=== PATIENT | female | born 1965 | race Caucasian/White ===

== ENCOUNTER 2016-05-15 11:07 | Emergency (ER) | payer OTHER ==
[~2016-05-15] VITALS: Ht 165.1 cm; Wt 68.0 kg
[~2016-05-15 11:07] MED LIST: IBUP800T23 PO; NEXI20CA PO; TRAM50 PO
[2016-05-15 11:11] VITALS: BP 106/74; PULSE 84; RESP 16; TEMP 98.3; O2SAT 98
[2016-05-15] MEDS ORDERED: NEXI40CA PO (11:18)
[2016-05-15] MEDS ORDERED: RESP: ALBUTEROL 2.5 MG/IPRATROPIUM 0.5 MG NEB (SCH) NEB ONE (11:45)
--- NOTE | 2016-05-15 11:50 | PD ---
HPI Chief Complaint: Cold / Flu Symptoms Time Seen by Provider: 11:43 Travel History International Travel<30 days: No Contact w/Intl Traveler<30days: No Traveled to known affect area: No History of Present Illness HPI 50-year-old female presents to the emergency room for evaluation of nonproductive cough, sore throat, and congestion for the past 2 days. Reports history of similar episode one month ago that went away on its own. She has been taking Mucinex without relief in symptoms. Cough is worse at night. Patient denies shortness of breath, chest pain, fever, chills, nausea, vomiting. Denies smoking. PFSH Past Medical History Hx Anticoagulant Therapy: No Arthritis: Yes Asthma: No Autoimmune Disease: No Heart Rhythm Problems: No Cardiac Catheterization: No Cardiovascular Problems: Yes High Cholesterol: No Chemotherapy: No Chest Pain: Yes Congestive Heart Failure: No COPD: No Cerebrovascular Accident: No Diabetes: No Diminished Hearing: No Endocrine: No Genitourinary: No Headaches: Yes Hypertension: No Immune Disorder: No Kidney Stones: No Musculoskeletal: No Neurologic: No Reproductive: No Respiratory: Yes (PLEURISY) Immunizations Current: Yes Migraines: Yes Renal Failure: No Seizures: No Sleep Apnea: Yes Tetanus Vaccination: < 5 Years Influenza Vaccination: No ?: Not Menopausal: Yes Dilation and Curettage (D&C): Yes (Multiple) Past Surgical History Abdominal Surgery: No Cardiac Surgery: No Section: Yes Coronary Artery Bypass Graft: No Ear Surgery: Yes Endocrine Surgery: No Eye Surgery: Yes Genitourinary Surgery: No Gynecologic Surgery: Yes Hysterectomy: Yes Neurologic Surgery: No Oral Surgery: No Thoracic Surgery: No Tonsillectomy: Yes Other Surgery: Yes (bunions and hammer toe bilat feet, nose surgery, four fatty tumors removed) Family History Family Myocardial Infarction: Yes Social History Alcohol Use: Yes (RARE) Tobacco Use: No Substance Use: No Allergies-Medications (Allergen,Severity, Reaction): Coded Allergies: Erythromycin (Verified Allergy, Severe, Anaphylaxis, 05/15/16) Acetaminophen (Verified Allergy, Intermediate, Nausea/Vomiting, 05/15/16) Iodine (Verified Allergy, Intermediate, Hives, 05/15/16) Morphine (Verified Allergy, Intermediate, Hives, 05/15/16) Contrast Media (Verified Allergy, Mild, Hives, 05/15/16) Nonsteroidal Anti-Inflammatory Agts (Verified Allergy, Mild, Nausea/ Vomiting, 05/15/16) Reglan (Verified Allergy, Mild, Rash, 05/15/16) Reported Meds & Prescriptions Reported Meds & Active Scripts Active Reported Nexium (Esomeprazole DR) 40 Mg Capdr 40 Mg PO DAILY Review of Systems Except as stated in HPI: all other systems reviewed are Neg Physical Exam Narrative GENERAL: Well-nourished, well-developed female in no acute distress. Afebrile. Ambulatory. SKIN: Warm and dry. HEAD: Normocephalic. EYES: No scleral icterus. No injection or drainage. ENT: Mucosa pink and moist. No erythema or exudates. No uvular edema. No uvular , palatal, or tonsillar deviation. Airway patent. Nasal turbinates appear normal without nasal blood, purulent drainage or septal hematoma. EARS: Bilateral pinnae and external canals appear within normal limits. Bilateral tympanic membranes without erythema, dullness or perforation. NECK: Supple, trachea midline. No JVD or lymphadenopathy. CARDIOVASCULAR: Regular rate and rhythm without murmurs, gallops, or rubs. RESPIRATORY: Breath sounds equal bilaterally. No accessory muscle use. Mild to moderate wheezing in the left lung field. Data Data Last Documented VS Vital Signs Date Time Temp Pulse Resp B/P Pulse Ox O2 Delivery O2 Flow Rate FiO2 05/15/16 11:19 98 Room Air 05/15/16 11:11 98.3 84 16 106/74 Orders Chest, Pa & Lat (05/15/16 ) Albuterol-Ipratropium Neb (Duoneb Neb) (05/15/16 11:45) MDM Medical Decision Making Medical Screen Exam Complete: Yes Emergency Medical Condition: Yes Medical Record Reviewed: Yes Differential Diagnosis Bronchitis versus upper respiratory infection versus common cold versus pneumonia unlikely Narrative Course 50-year-old female presents to the emergency room for evaluation of nonproductive cough, sore throat, and congestion for the past 2 days. Denies systemic signs of infection. Vital signs stable. Patient coughing frequently in the emergency room. Lung sounds reveal left-sided wheezes. She was given 1 DuoNeb. Chest x-ray is negative. This is acute viral bronchitis. Patient discharged Tessalon Perles and an inhaler and told to follow up with primary care physician or return for worsening symptoms. She understands and agrees to plan. Diagnosis Primary Impression: Acute bronchitis Qualified Code: J20.9 - Acute bronchitis, unspecified organism Referrals: Primary Care Physician Patient Instructions: Acute Bronchitis (ED), General Instructions Additional Instructions: Rest and drink plenty of fluids. [id number] Robitussin for cough. Use inhaler as directed, as needed for shortness of breath and cough. Take Tessalon Perles as directed, as needed for cough. Follow-up with a primary care physician. Return to the emergency room for worsening symptoms. Med/Other Pt SpecificInfo: Prescription(s) given Scripts Albuterol 18 GM Inh (Ventolin Hfa 18 GM Inh)90 Mcg/Act Aer2 Puff INH Q6H PRN ( SHORTNESS OF BREATH) #1 INHALER Ref 0 Prov:Kristyn Orourke MD 05/15/16 Benzonatate (Tessalon Perles)100 Mg [id number] Mg PO TID PRN (COUGH) #21 CAP Ref 0 Prov:Kristyn Orourke MD 05/15/16 Disposition: 01 DISCHARGE HOME Condition: Stable Sujata Tenorio May 15, 2016 11:49
--- NOTE | 2016-05-15 12:35 | RADHPO ---
EXAM DATE/TIME: 05/15/2016 12:14 [facility] COMPARISON: CHEST SINGLE AP, June 08, 2015, 19:04. INDICATIONS : Cough MEDICAL HISTORY : None. SURGICAL HISTORY : None. ENCOUNTER: Initial ACUITY: 2 days PAIN SCORE: 7/10 LOCATION: Bilateral chest FINDINGS: PA and lateral views of the chest demonstrate the lungs to be symmetrically aerated without evidence of mass, infiltrate or effusion. The cardiomediastinal contours are unremarkable. Osseous structure s are intact. CONCLUSION: Normal examination. Mckayla Cano MD on May 15, 2016 at 12:32 Board Certified Radiologist. This report was verified electronically.
[2016-05-15] MEDS ORDERED: VENTAER INH (12:39)
[2016-05-15] MEDS ORDERED: BENZ100 PO (12:39)
[2016-05-15 12:45] VITALS: BP 112/63
== END 2016-05-15 12:47 | disposition home or self-care (01) ==
LOC: PHEFT 11:07
DX: J20.9 Acute bronchitis, unspecified (principal)
CPT/HCPCS: 71020; 94664; 99283

== ENCOUNTER 2016-07-09 17:09 | Emergency (ER) | payer OTHER ==
[~2016-07-09] VITALS: Ht 165.1 cm; Wt 70.0 kg
[~2016-07-09 17:09] MED LIST changes: +BENZ100 PO; -IBUP800T23 PO; -NEXI20CA PO; +NEXI40CA PO; -TRAM50 PO; +VENTAER INH
[2016-07-09 17:12] VITALS: BP 128/82; PULSE 76; RESP 12; TEMP 98; O2SAT 100
--- NOTE | 2016-07-09 18:02 | PD ---
HPI Chief Complaint: Abdominal Pain Time Seen by Provider: 17:58 Travel History International Travel<30 days: No Contact w/Intl Traveler<30days: No Traveled to known affect area: No History of Present Illness HPI Patient is a 51-year-old female presenting to emergency department for evaluation of left lower quadrant abdominal pain. Patient states it started approximately 7:30 this morning. She states she also feels nauseated and has been having urinary frequency. She states the abdominal pain increases when she urinates. She also reports lower back pain. Patient states the pain is a 10 out of 10 and describes as aching and throbbing. PFSH Past Medical History Hx Anticoagulant Therapy: No Arthritis: Yes Asthma: No Autoimmune Disease: No Heart Rhythm Problems: No Cardiac Catheterization: No Cardiovascular Problems: Yes High Cholesterol: No Chemotherapy: No Chest Pain: Yes Congestive Heart Failure: No COPD: No Cerebrovascular Accident: No Diabetes: No Diminished Hearing: No Endocrine: No Genitourinary: No Headaches: Yes Hypertension: No Immune Disorder: No Kidney Stones: No Musculoskeletal: No Neurologic: No Reproductive: No Respiratory: Yes (PLEURISY) Immunizations Current: Yes Migraines: Yes Renal Failure: No Seizures: No Sleep Apnea: Yes Menopausal: Yes Dilation and Curettage (D&C): Yes (Multiple) Past Surgical History Abdominal Surgery: No Cardiac Surgery: No Section: Yes Coronary Artery Bypass Graft: No Ear Surgery: Yes Endocrine Surgery: No Eye Surgery: Yes Genitourinary Surgery: No Gynecologic Surgery: Yes Hysterectomy: Yes Neurologic Surgery: No Oral Surgery: No Thoracic Surgery: No Tonsillectomy: Yes Other Surgery: Yes (bunions and hammer toe bilat feet, nose surgery, four fatty tumors removed) Social History Alcohol Use: Yes (RARE) Tobacco Use: No Substance Use: No Allergies-Medications (Allergen,Severity, Reaction): Coded Allergies: Erythromycin (Verified Allergy, Severe, Anaphylaxis, 07/09/16) Acetaminophen (Verified Allergy, Intermediate, Nausea/Vomiting, 07/09/16) Iodine (Verified Allergy, Intermediate, Hives, 07/09/16) Morphine (Verified Allergy, Intermediate, Hives, 07/09/16) Contrast Media (Verified Allergy, Mild, Hives, 07/09/16) Nonsteroidal Anti-Inflammatory Agts (Verified Allergy, Mild, Nausea/ Vomiting, 07/09/16) Reglan (Verified Allergy, Mild, Rash, 07/09/16) Reported Meds & Prescriptions Reported Meds & Active Scripts Active Tramadol (Tramadol HCl) 50 Mg Tab 50 Mg PO Q6H PRN Reported Nexium (Esomeprazole DR) 40 Mg Capdr 40 Mg PO DAILY Review of Systems Except as stated in HPI: all other systems reviewed are Neg General / Constitutional: No: Fever, Chills HENT: No: Headaches Cardiovascular: No: Chest Pain or Discomfort Respiratory: No: Shortness of Breath Gastrointestinal: Positive: Nausea, Abdominal Pain Genitourinary: Positive: Frequency, Flank Pain Musculoskeletal: Positive: Pain (back pain) Physical Exam Narrative GENERAL: Well-developed, well-nourished, alert female. Appears uncomfortable, in no acute distress. SKIN: Warm and dry. HEAD: Atraumatic. Normocephalic. EYES: Pupils equal and round. No scleral icterus. No injection or drainage. ENT: No nasal bleeding or discharge. Mucous membranes pink and moist. NECK: Trachea midline. No JVD. CARDIOVASCULAR: Regular rate and rhythm. No murmur appreciated. RESPIRATORY: No accessory muscle use. Clear to auscultation. Breath sounds equal bilaterally. GASTROINTESTINAL: Abdomen soft, moderately tender to palpation in left lower quadrant positive guarding, no rebound, nondistended. Hepatic and splenic margins not palpable. Positive bowel sounds. MUSCULOSKELETAL: No obvious deformities. No clubbing. No cyanosis. No edema. Positive CVAT bilaterally NEUROLOGICAL: Awake and alert. No obvious cranial nerve deficits. Motor grossly within normal limits. Normal speech. PSYCHIATRIC: Appropriate mood and affect; insight and judgment normal. Data Data Last Documented VS Vital Signs Date Time Temp Pulse Resp B/P Pulse Ox O2 Delivery O2 Flow Rate FiO2 07/09/16 17:12 98.0 76 12 128/82 100 Orders Urinalysis - C+S If Indicated (07/09/16 17:40) Complete Blood Count With Diff (07/09/16 17:48) Comprehensive Metabolic Panel (07/09/16 17:48) Ct Abd/Pel W/O Iv Contrast (07/09/16 ) Ed Urine Pregnancytest Poc (07/09/16 17:54) Ondansetron Inj (Zofran Inj) (07/09/16 18:30) Urine Culture (07/09/16 18:10) Promethazine Inj (Phenergan Inj) (07/09/16 19:15) Ciprofloxacin (Cipro) (07/09/16 19:15) Metronidazole (Flagyl) (07/09/16 19:15) Labs Laboratory Tests Test 07/09/16 18:10 White Blood Count 5.7 TH/MM3 Red Blood Count 4.22 MIL/MM3 Hemoglobin 13.6 GM/DL Hematocrit 40.0 % Mean Corpuscular Volume 94.7 FL Mean Corpuscular Hemoglobin 32.2 PG Mean Corpuscular Hemoglobin 34.0 % Concent Red Cell Distribution Width 13.0 % Platelet Count 234 TH/MM3 Mean Platelet Volume 8.5 FL Neutrophils (%) (Auto) 68.9 % Lymphocytes (%) (Auto) 19.1 % Monocytes (%) (Auto) 8.2 % Eosinophils (%) (Auto) 3.2 % Basophils (%) (Auto) 0.6 % Neutrophils # (Auto) 3.9 TH/MM3 Lymphocytes # (Auto) 1.1 TH/MM3 Monocytes # (Auto) 0.5 TH/MM3 Eosinophils # (Auto) 0.2 TH/MM3 Basophils # (Auto) 0.0 TH/MM3 CBC Comment DIFF FINAL Differential Comment Urine Color LIGHT-YELLOW Urine Turbidity HAZY Urine pH 5.5 Urine Specific [place] 1.012 Urine Protein NEG mg/dL Urine Glucose (UA) NEG mg/dL Urine Ketones NEG mg/dL Urine Occult Blood NEG Urine Nitrite NEG Urine Bilirubin NEG Urine Urobilinogen LESS THAN 2.0 MG/DL Urine Leukocyte Esterase LARGE Urine RBC 1 /hpf Urine WBC 17 /hpf Urine Squamous Epithelial 6 /hpf Cells Urine Bacteria RARE /hpf Urine Mucus FEW /lpf Microscopic Urinalysis Comment CULTURE INDICATED Sodium Level 141 MEQ/L Potassium Level 3.7 MEQ/L Chloride Level 104 MEQ/L Carbon Dioxide Level 29.1 MEQ/L Anion Gap 8 MEQ/L Blood Urea Nitrogen 15 MG/DL Creatinine 0.88 MG/DL Estimat Glomerular Filtration 67 ML/MIN Rate Random Glucose 95 MG/DL Calcium Level 9.1 MG/DL Total Bilirubin 0.2 MG/DL Aspartate Amino Transf 17 U/L (AST/SGOT) Alanine Aminotransferase 20 U/L (ALT/SGPT) Alkaline Phosphatase 93 U/L Total Protein 7.7 GM/DL Albumin 4.0 GM/DL [facility] Medical Decision Making Medical Screen Exam Complete: Yes Emergency Medical Condition: Yes Interpretation(s) Laboratory Tests Test 07/09/16 18:10 White Blood Count 5.7 TH/MM3 Red Blood Count 4.22 MIL/MM3 Hemoglobin 13.6 GM/DL Hematocrit 40.0 % Mean Corpuscular Volume 94.7 FL Mean Corpuscular Hemoglobin 32.2 PG Mean Corpuscular Hemoglobin 34.0 % Concent Red Cell Distribution Width 13.0 % Platelet Count 234 TH/MM3 Mean Platelet Volume 8.5 FL Neutrophils (%) (Auto) 68.9 % Lymphocytes (%) (Auto) 19.1 % Monocytes (%) (Auto) 8.2 % Eosinophils (%) (Auto) 3.2 % Basophils (%) (Auto) 0.6 % Neutrophils # (Auto) 3.9 TH/MM3 Lymphocytes # (Auto) 1.1 TH/MM3 Monocytes # (Auto) 0.5 TH/MM3 Eosinophils # (Auto) 0.2 TH/MM3 Basophils # (Auto) 0.0 TH/MM3 CBC Comment DIFF FINAL Differential Comment Urine Color LIGHT-YELLOW Urine Turbidity HAZY Urine pH 5.5 Urine Specific [place] 1.012 Urine Protein NEG mg/dL Urine Glucose (UA) NEG mg/dL Urine Ketones NEG mg/dL Urine Occult Blood NEG Urine Nitrite NEG Urine Bilirubin NEG Urine Urobilinogen LESS THAN 2.0 MG/DL Urine Leukocyte Esterase LARGE Urine RBC 1 /hpf Urine WBC 17 /hpf Urine Squamous Epithelial 6 /hpf Cells Urine Bacteria RARE /hpf Urine Mucus FEW /lpf Microscopic Urinalysis Comment CULTURE INDICATED Sodium Level 141 MEQ/L Potassium Level 3.7 MEQ/L Chloride Level 104 MEQ/L Carbon Dioxide Level 29.1 MEQ/L Anion Gap 8 MEQ/L Blood Urea Nitrogen 15 MG/DL Creatinine 0.88 MG/DL Estimat Glomerular Filtration 67 ML/MIN Rate Random Glucose 95 MG/DL Calcium Level 9.1 MG/DL Total Bilirubin 0.2 MG/DL Aspartate Amino Transf 17 U/L (AST/SGOT) Alanine Aminotransferase 20 U/L (ALT/SGPT) Alkaline Phosphatase 93 U/L Total Protein 7.7 GM/DL Albumin 4.0 GM/DL Last Impressions Abdomen/Pelvis CT 07/09/16 0000 Signed Impressions: Service Date/Time: Saturday, July 09, 2016 18:26 - CONCLUSION: Mild uncomplicated diverticulitis of the sigmoid colon. Jhonny López MD Vital Signs Date Time Temp Pulse Resp B/P Pulse Ox O2 Delivery O2 Flow Rate FiO2 07/09/16 17:12 98.0 76 12 128/82 100 Differential Diagnosis Diverticulitis versus obstruction versus urinary tract infection versus pyelonephritis versus gastroenteritis versus other Narrative Course Patient is a 51-year-old female presenting to emergency for evaluation of left lower quadrant abdominal pain that started this morning. Patient has a history of diverticulitis, she is also experiencing urinary symptoms. Labs and imaging Ordered and pending. Workup initiated in triage, care patient will be transferred to provider when a medical bed is available. CT scan of the abdomen and pelvis was ordered without IV contrast due to patient 's allergy to contrast media. CT of the abdomen and pelvis shows mild sigmoid diverticulitis. CBC, chemistries reviewed and unremarkable. Urinalysis is indicative of a urinary tract infection. First dose of metronidazole and ciprofloxacin given the emergency department. Patient will be treated with ciprofloxacin as well as metronidazole for 10 days. Additionally she will be given prescriptions for Zofran and tramadol. Patient states that she gets a yeast infection while on antibiotics. Patient is requesting Diflucan. She will be given one dose of Diflucan as well. She is encouraged to return to emergency department for any new or worsening symptoms, she is encouraged to maintain adequate fluid intake, bland low residue diet, complete full course of antibiotics as directed. She was advised not to drive or operate heavy machinery taking narcotic pain medications. Patient verbalized understanding of these instructions. Patient is stable for discharge. Diagnosis Primary Impression: UTI (urinary tract infection) Qualified Code: N39.0 - Urinary tract infection without hematuria, site unspecified Additional Impression: Diverticulitis Qualified Code: K57.92 - Diverticulitis of intestine without perforation or abscess without bleeding, unspecified part of intestinal tract Referrals: Primary Care Physician Patient Instructions: Diverticulitis (ED), Diverticulitis Diet (ED), General Instructions, Urinary Tract Infection in Women (ED) Additional Instructions: Complete full course of antibiotics as directed Do not drive or operate heavy machinery taking narcotic pain medication Return to emergency department for any new or worsening symptoms Maintain adequate fluid intake, bland low-residue diet as tolerated Med/Other Pt SpecificInfo: Prescription(s) given Scripts Ciprofloxacin 500 Mg [id number] Mg PO BID 10 Days Ref 0 Prov:Sakshi Carrillo 07/09/16 Metronidazole 500 Mg [id number] Mg PO TID 10 Days Ref 0 Prov:Sakshi Carrillo 07/09/16 Fluconazole (Diflucan)150 Mg [id number] Mg PO ONCE #1 TAB Ref 0 Prov:Sakshi Carrillo 07/09/16 Ondansetron Odt (Zofran Odt)4 Mg Tab4 Mg SL Q6HR PRN (Nausea/Vomiting) #30 TAB Ref 0 Prov:Sakshi Carrillo 07/09/16 Tramadol 50 Mg Tab50 Mg PO Q6H PRN (PAIN) #10 TAB Ref 0 Prov:Nicol Alexis DO 07/09/16 Disposition: 01 DISCHARGE HOME Condition: Stable Sakshi Carrillo Jul 09, 2016 18:02
[2016-07-09 18:27] LABS: AUTOMATED NEUTROPHIL # 3.9 TH/MM3 (1.8-7.7); BASOPHIL % 0.6 % (0.0-2.0); EOSINOPHIL # 0.2 TH/MM3 (0-0.4); EOSINOPHIL % 3.2 % (0.0-4.0); HEMO FLAGS DIFF FINAL; LYMPH % 19.1 % (9.0-44.0); LYMPHOCYTE # 1.1 TH/MM3 (1.0-4.8); MEAN CELL VOLUME 94.7 FL (80.0-100.0); MEAN CORPUSCULAR HEMOGLOBIN 32.2 PG (27.0-34.0); MONO % 8.2 % (0.0-8.0); NEUT % 68.9 % (16.0-70.0); PLATELET COUNT 234 TH/MM3 (150-450); RED BLOOD COUNT 4.22 MIL/MM3 (4.00-5.30); WHITE BLOOD COUNT 5.7 TH/MM3 (4.0-11.0)
[2016-07-09] MEDS ORDERED: ONDANSETRON HCL 4 MG/2 ML VIAL IV PUSH ONE (18:30)
[2016-07-09 18:36] LABS: ANION GAP 8 MEQ/L (5-15); AST (GOT) 17 U/L (15-37); BACTERIA, URINE RARE /hpf; BICARBONATE 29.1 MEQ/L (21.0-32.0); BLOOD UREA NITROGEN 15 MG/DL (7-18); BLOOD, URINE NEG (NEG); CHLORIDE 104 MEQ/L (98-107); GLOMERULAR FILTRATION RATE 67 ML/MIN (>89); GLUCOSE,URINE NEG (NEG); KETONE, URINE NEG (NEG); MUCUS URINE FEW /lpf (OCC); NITRITE,URINE NEG (NEG); PH, URINE 5.5 (5.0-8.5); POTASSIUM 3.7 MEQ/L (3.5-5.1); SODIUM (NA) 141 MEQ/L (136-145); SQUAMOUS EPITHELIAL CELL URINE 6 /hpf (0-5); URINE COLOR LIGHT-YELLOW (YELLW/STRAW)
[2016-07-09 18:39] LABS: ALKALINE PHOSPHATASE 93 U/L (45-117); ALT (GPT) 20 U/L (10-53); COMMENT (UR) CULTURE INDICATED; CULTURE IF INDICATED CULTURE INDICATED; TOTAL BILIRUBIN ADULT 0.2 MG/DL (0.2-1.0)
--- NOTE | 2016-07-09 18:47 | RADRPT ---
EXAM DATE/TIME: 07/09/2016 18:26 [facility] COMPARISON: No previous studies available for comparison. INDICATIONS : Lower abdominal pain and bilat low back pain with urinary frequency. ORAL CONTRAST: No oral contrast ingested. RADIATION DOSE: 8.09 CTDIvol (mGy) MEDICAL HISTORY : Gastroesophageal reflux disease. Cardiovascular disease Diverticulitis. SURGICAL HISTORY : Hysterectomy. section. ENCOUNTER: Initial ACUITY: 1 day PAIN SCALE: 5/10 LOCATION: Right lower quadrant TECHNIQUE: Volumetric scanning of the abdomen and pelvis was performed. Using automated exposure control and ad justment of the mA and/or kV according to patient size, radiation dose was kept as low as reasonably achievable to obtain optimal diagnostic quality images. FINDINGS: Numerous diverticula are seen in the sigmoid colon and there are mild inflammatory changes in the lef t lower quadrant, for example series 601 image 34 and series 2 image 74. No abscess, perforation or o bstruction. No abnormality seen of the solid organs. Patient has had ventral hernia repair with a small amount of mesh just below the umbilicus. Previous hysterectomy. No free fluid seen. Visualized lung bases are clear. CONCLUSION: Mild uncomplicated diverticulitis of the sigmoid colon. Jhonny López MD on July 09, 2016 at 18:43 Board Certified Radiologist. This report was verified electronically.
[2016-07-09] MEDS ORDERED: TRAM50TA PO (18:56)
[2016-07-09] MEDS ORDERED: METR500T10 PO (19:09)
[2016-07-09] MEDS ORDERED: DIFL150T PO (19:09)
[2016-07-09] MEDS ORDERED: CIPR500T2 PO (19:09)
[2016-07-09] MEDS ORDERED: ZOFR4TAB3 SL (19:09)
[2016-07-09] MEDS ORDERED: CIPROFLOXACIN 500 MG TAB PO ONE (19:15)
[2016-07-09] MEDS ORDERED: metroNIDAZOLE 500 MG TAB PO ONE (19:15)
[2016-07-09] MEDS ORDERED: PROMETHAZINE INJ 25 MG/ML VIAL IM ONE (19:15)
== END 2016-07-09 20:54 | disposition home or self-care (01) ==
LOC: NETRI 17:09
DX: N39.0 Urinary tract infection, site not specified (principal); K57.92 Diverticulitis of intestine, part unspecified, without perforation or abscess without bleeding; B96.20 Unspecified Escherichia coli [E. coli] as the cause of diseases classified elsewhere
CPT/HCPCS: 74176; 80053; 81001; 84703; 85025; 87077; 87086; 87186; 96372; 96374; 99284; J2405; J2550

== ENCOUNTER 2016-07-20 13:44 | Inpatient (IN) | payer OTHER ==
[~2016-07-20] VITALS: Ht 165.1 cm; Wt 74.2 kg
[~2016-07-20 13:44] MED LIST changes: -BENZ100 PO; +CIPR500T2 PO; +DIFL150T PO; +METR500T10 PO; +TRAM50TA PO; -VENTAER INH; +ZOFR4TAB3 SL
[2016-07-20 13:46] VITALS: BP 130/70; PULSE 98; RESP 17; TEMP 98.3; O2SAT 98
[2016-07-20] MEDS ORDERED: SODIUM CHLORIDE 0.9% FLUSH 5 ML FLUSH IVF PRN (14:15)
[2016-07-20] MEDS ORDERED: KETOROLAC TROMETHAMINE 30 MG/ML (IVP) VIAL IVP ONE (14:15)
[2016-07-20] MEDS ORDERED: SODIUM CHLOR 0.9% 1000 ML INJ 1,000 ML IV SCH (14:15)
[2016-07-20] MEDS ORDERED: ONDANSETRON HCL 4 MG/2 ML VIAL IVP ONE (14:15)
[2016-07-20 14:32] LABS: BLOOD, URINE TRACE (NEG); COMMENT (UR) CULT NOT INDICATED; CULTURE IF INDICATED CULT NOT INDICATED; GLUCOSE,URINE NEG (NEG); KETONE, URINE NEG (NEG); MUCUS URINE FEW /lpf (OCC); NITRITE,URINE NEG (NEG); PH, URINE 5.5 (5.0-8.5); SQUAMOUS EPITHELIAL CELL URINE <1 /hpf (0-5); URINE COLOR YELLOW (YELLW/STRAW)
[2016-07-20 14:45] VITALS: BP 118/71; PULSE 88; RESP 16; O2SAT 98
[2016-07-20] MEDS ORDERED: DIATRIZOATE MEGLUM/DIATRIZOATE SOD 9 ML CUP ONE (14:51)
[2016-07-20 14:55] LABS: BASOPHIL % 0.4 % (0.0-2.0); EOSINOPHIL # 0.1 TH/MM3 (0-0.4); EOSINOPHIL % 1.7 % (0.0-4.0); HEMATOCRIT 39.7 % (35.0-46.0); HEMO FLAGS DIFF FINAL; LYMPH % 18.9 % (9.0-44.0); MEAN CELL VOLUME 94.1 FL (80.0-100.0); MONO % 7.2 % (0.0-8.0); NEUT % 71.8 % (16.0-70.0); PLATELET COUNT 228 TH/MM3 (150-450); RED BLOOD COUNT 4.22 MIL/MM3 (4.00-5.30); RED CELL DISTRIBUTION WIDTH 13.1 % (11.6-17.2); WHITE BLOOD COUNT 5.6 TH/MM3 (4.0-11.0)
[2016-07-20 15:14] LABS: ALT (GPT) 25 U/L (10-53); ANION GAP 9 MEQ/L (5-15); AST (GOT) 17 U/L (15-37); BICARBONATE 27.1 MEQ/L (21.0-32.0); BLOOD UREA NITROGEN 14 MG/DL (7-18); CHLORIDE 105 MEQ/L (98-107); GLOMERULAR FILTRATION RATE 71 ML/MIN (>89); POTASSIUM 4.1 MEQ/L (3.5-5.1); SODIUM (NA) 141 MEQ/L (136-145)
[2016-07-20 15:16] LABS: ALKALINE PHOSPHATASE 69 U/L (45-117); TOTAL BILIRUBIN ADULT 0.3 MG/DL (0.2-1.0)
[2016-07-20 15:27] LABS: APTT (PATIENT) 28.3 SEC (24.3-30.1); PROTHROMBIN TIME - PATIENT 11.5 SEC (9.8-11.6)
[2016-07-20] MEDS ORDERED: DICYCLOMINE HCL 10 MG CAP PO ONE (16:15)
--- NOTE | 2016-07-20 16:31 | RADRPT ---
EXAM DATE/TIME: 07/20/2016 16:11 [facility] COMPARISON: CT ABDOMEN & PELVIS W/O CONTRAST, July 09, 2016, 18:26. INDICATIONS : Abdominal pain. History of recent diverticulitis. Evaluate for diverticulitis. ORAL CONTRAST: Prescribed oral contrast ingested. RADIATION DOSE: 22.14 CTDIvol (mGy) MEDICAL HISTORY : Diverticulitis. SURGICAL HISTORY : None. ENCOUNTER: Initial ACUITY: 1 day PAIN SCALE: 6/10 LOCATION: Bilateral abdomen. TECHNIQUE: Volumetric scanning of the abdomen and pelvis was performed. Using automated exposure control and ad justment of the mA and/or kV according to patient size, radiation dose was kept as low as reasonably achievable to obtain optimal diagnostic quality images. FINDINGS: LOWER LUNGS: The visualized lower lungs are clear. LIVER: Homogeneous density without lesion. There is no dilation of the biliary tree. No calcified gallston es. SPLEEN: Normal size without lesion. PANCREAS: Within normal limits. KIDNEYS: Normal in size and shape. There is no mass, stone, or hydronephrosis. ADRENAL GLANDS: Within normal limits. VASCULAR: There is no aortic aneurysm. BOWEL/MESENTERY: There is no mild interval increase in inflammatory change along the left side of the sigmoid colon be st seen on axial image #74. There are multiple diverticuli. There is no drainable fluid collection or free air. The bowel gas pattern remains unremarkable with no obstruction. ABDOMINAL WALL: Within normal limits. RETROPERITONEUM: There is no lymphadenopathy. BLADDER: No wall thickening or mass. REPRODUCTIVE: Within normal limits. INGUINAL: There is no lymphadenopathy or hernia. MUSCULOSKELETAL: Within normal limits for patient age. CONCLUSION: Mild interval increase in inflammatory changes since the 07/09/2016 exam surrounding the left side of s igmoid colon. This remains characteristic of acute diverticulitis. Lionel Chahal MD on July 20, 2016 at 16:27 Board Certified Radiologist. This report was verified electronically.
[2016-07-20 16:45] VITALS: BP 127/87; PULSE 93; RESP 16; O2SAT 97
[2016-07-20] MEDS ORDERED: AMPICILLIN-SULBACTAM INJ 3 GM in SODIUM CHLORIDE 0.9% INJ 100 ML IV ONE (17:15)
--- NOTE | 2016-07-20 17:22 | PD ---
HPI Chief Complaint: Complaint Time Seen by Provider: 14:00 Travel History International Travel<30 days: No Contact w/Intl Traveler<30days: No Traveled to known affect area: No History of Present Illness HPI 51-year-old female presents the emergency department worsening abdominal pain and cramping. Patient was seen on the seventh and diagnosed with urinary tract infection as well as diverticulitis. Patient has been treated with Cipro and Flagyl, but complains that overall she does not feel improved and her belly pain seems to be worsening. She denies fever or chills or nausea or vomiting. Patient has history of diverticulitis in the past. Patient is concerned it is not improving with the current medications that she has. She has multiple allergies please see her list. PFSH Past Medical History Hx Anticoagulant Therapy: No Arthritis: Yes Asthma: No Autoimmune Disease: No Heart Rhythm Problems: No Cardiac Catheterization: No Cardiovascular Problems: Yes High Cholesterol: No Chemotherapy: No Chest Pain: Yes Congestive Heart Failure: No COPD: No Cerebrovascular Accident: No Diabetes: No Diminished Hearing: No Endocrine: No Genitourinary: No Headaches: Yes Hypertension: No Immune Disorder: No Kidney Stones: No Musculoskeletal: No Neurologic: No Reproductive: No Respiratory: Yes (PLEURISY) Immunizations Current: Yes Migraines: Yes Renal Failure: No Seizures: No Sleep Apnea: Yes Tetanus Vaccination: > 5 Years Influenza Vaccination: Yes ?: Not LMP: UNK Menopausal: Yes : 10 Para: 4 Miscarriage: 6 Dilation and Curettage (D&C): Yes (Multiple) Past Surgical History Abdominal Surgery: No Cardiac Surgery: No Section: Yes Coronary Artery Bypass Graft: No Ear Surgery: Yes Endocrine Surgery: No Eye Surgery: Yes Genitourinary Surgery: No Gynecologic Surgery: Yes Hysterectomy: Yes Neurologic Surgery: No Oral Surgery: No Thoracic Surgery: No Tonsillectomy: Yes Other Surgery: Yes (bunions and hammer toe bilat feet, nose surgery, four fatty tumors removed) Family History Family Myocardial Infarction: Yes Social History Alcohol Use: Yes (RARE) Tobacco Use: No Substance Use: No Allergies-Medications (Allergen,Severity, Reaction): Coded Allergies: Erythromycin (Verified Allergy, Severe, Anaphylaxis, 07/20/16) Acetaminophen (Verified Allergy, Intermediate, Nausea/Vomiting, 07/20/16) Iodine (Verified Allergy, Intermediate, Hives, 07/20/16) Morphine (Verified Allergy, Intermediate, Hives, 07/20/16) Contrast Media (Verified Allergy, Mild, Hives, 07/20/16) Nonsteroidal Anti-Inflammatory Agts (Verified Allergy, Mild, Nausea/ Vomiting, 07/20/16) Reglan (Verified Allergy, Mild, Rash, 07/20/16) Reported Meds & Prescriptions Reported Meds & Active Scripts Active Ciprofloxacin (Ciprofloxacin HCl) 500 Mg Tab 500 Mg PO BID 10 Days Metronidazole 500 Mg Tab 500 Mg PO TID 10 Days Diflucan (Fluconazole) 150 Mg Tab 150 Mg PO ONCE Zofran Odt (Ondansetron Odt) 4 Mg Tab 4 Mg SL Q6HR PRN Tramadol (Tramadol HCl) 50 Mg Tab 50 Mg PO Q6H PRN Reported Nexium (Esomeprazole DR) 40 Mg Capdr 40 Mg PO DAILY Review of Systems Except as stated in HPI: all other systems reviewed are Neg General / Constitutional: No: Fever Eyes: No: Visual changes HENT: No: Headaches Cardiovascular: No: Chest Pain or Discomfort Respiratory: No: Shortness of Breath Gastrointestinal: Positive: Nausea, Abdominal Pain, Loss of Appetite, No: Vomiting, Diarrhea, Constipation Genitourinary: No: Dysuria Musculoskeletal: No: Pain Skin: No Rash Neurologic: No: Weakness Psychiatric: No: Depression Endocrine: No: Polydipsia Hematologic/Lymphatic: No: Easy Bruising Physical Exam Narrative GENERAL: Patient appears in mild to moderate distress. SKIN: Warm and dry. Normal color. Normal turgor. HEAD: Atraumatic. Normocephalic. EYES: Pupils equal and round. No scleral icterus. No injection or drainage. ENT: No nasal bleeding or discharge. Mucous membranes pink and moist. Pharynx is normal. Airway is patent. NECK: Trachea midline. Neck is supple nontender. CARDIOVASCULAR: Regular rate and rhythm. RESPIRATORY: No accessory muscle use. Clear to auscultation. Breath sounds equal bilaterally. GASTROINTESTINAL: Abdomen soft, moderate right lower quadrant tenderness with mild guarding and mild rebound, nondistended. Hepatic and splenic margins not palpable. Mild bilateral CVA tenderness. MUSCULOSKELETAL: Extremities without clubbing, cyanosis, or edema. No obvious deformities. NEUROLOGICAL: Awake and alert. No obvious cranial nerve deficits. Motor grossly within normal limits. Five out of 5 muscle strength in the arms and legs. Normal speech. PSYCHIATRIC: Appropriate mood and affect; insight and judgment normal. Data Data Last Documented VS Vital Signs Date Time Temp Pulse Resp B/P Pulse Ox O2 Delivery O2 Flow Rate FiO2 07/20/16 16:45 93 16 127/87 97 Room Air 07/20/16 13:46 98.3 Orders Urinalysis - C+S If Indicated (07/20/16 14:02) Ed Urine Pregnancytest Poc (07/20/16 14:02) Complete Blood Count With Diff (07/20/16 14:15) Comprehensive Metabolic Panel (07/20/16 14:15) Lipase (07/20/16 14:15) Lactic Acid (07/20/16 14:15) Prothrombin Time / Inr (Pt) (07/20/16 14:15) Act Partial Throm Time (Ptt) (07/20/16 14:15) Iv Access Insert/Monitor (07/20/16 14:15) Ecg Monitoring (07/20/16 14:15) Oximetry (07/20/16 14:15) NPO (07/20/16 14:15) Ondansetron Inj (Zofran Inj) (07/20/16 14:15) Sodium Chlor 0.9% 1000 Ml Inj (Ns 1000 M (07/20/16 14:15) Sodium Chloride 0.9% Flush (Ns Flush) (07/20/16 14:15) Ketorolac Inj (Toradol Inj) (07/20/16 14:15) Ct Abd/Pel W/O Iv Contrast (07/20/16 14:39) Oral Contrast - Adult (07/20/16 14:44) Diatrizoate Liq ( Gastroview Liq) (07/20/16 14:51) Dicyclomine (Bentyl) (07/20/16 16:15) Ampicillin-Sulbactam Inj (Unasyn Inj) (07/20/16 17:15) Hydromorphone Pf Inj (Dilaudid Pf Inj) (07/20/16 17:30) Labs Laboratory Tests Test 07/20/16 07/20/16 14:10 14:40 Urine Color YELLOW Urine Turbidity CLEAR Urine pH 5.5 Urine Specific [place] 1.011 Urine Protein NEG mg/dL Urine Glucose (UA) NEG mg/dL Urine Ketones NEG mg/dL Urine Occult Blood TRACE Urine Nitrite NEG Urine Bilirubin NEG Urine Urobilinogen LESS THAN 2.0 MG/DL Urine Leukocyte Esterase NEG Urine RBC LESS THAN 1 /hpf Urine WBC 1 /hpf Urine Squamous Epithelial <1 /hpf Cells Urine Mucus FEW /lpf Microscopic Urinalysis Comment CULT NOT INDICATED White Blood Count 5.6 TH/MM3 Red Blood Count 4.22 MIL/MM3 Hemoglobin 13.5 GM/DL Hematocrit 39.7 % Mean Corpuscular Volume 94.1 FL Mean Corpuscular Hemoglobin 32.0 PG Mean Corpuscular Hemoglobin 34.0 % Concent Red Cell Distribution Width 13.1 % Platelet Count 228 TH/MM3 Mean Platelet Volume 8.3 FL Neutrophils (%) (Auto) 71.8 % Lymphocytes (%) (Auto) 18.9 % Monocytes (%) (Auto) 7.2 % Eosinophils (%) (Auto) 1.7 % Basophils (%) (Auto) 0.4 % Neutrophils # (Auto) 4.0 TH/MM3 Lymphocytes # (Auto) 1.0 TH/MM3 Monocytes # (Auto) 0.4 TH/MM3 Eosinophils # (Auto) 0.1 TH/MM3 Basophils # (Auto) 0.0 TH/MM3 CBC Comment DIFF FINAL Differential Comment Prothrombin Time 11.5 SEC Prothromb Time International 1.0 RATIO Ratio Activated Partial 28.3 SEC Thromboplast Time Sodium Level 141 MEQ/L Potassium Level 4.1 MEQ/L Chloride Level 105 MEQ/L Carbon Dioxide Level 27.1 MEQ/L Anion Gap 9 MEQ/L Blood Urea Nitrogen 14 MG/DL Creatinine 0.84 MG/DL Estimat Glomerular Filtration 71 ML/MIN Rate Random Glucose 107 MG/DL Lactic Acid Level 1.2 mmol/L Calcium Level 9.1 MG/DL Total Bilirubin 0.3 MG/DL Aspartate Amino Transf 17 U/L (AST/SGOT) Alanine Aminotransferase 25 U/L (ALT/SGPT) Alkaline Phosphatase 69 U/L Total Protein 7.2 GM/DL Albumin 3.6 GM/DL Lipase 231 U/L [facility] Medical Decision Making Medical Screen Exam Complete: Yes Emergency Medical Condition: Yes Differential Diagnosis Abdominal pain. Diverticulitis not responding to outpatient treatment. Ongoing urinary tract infection. Pyelonephritis. Narrative Course Patient is medically stable at time of exam. IV access is obtained and labs ordered including CBC, CMP, lactic acid, lipase, and urinalysis. Repeat CT of the abdomen is ordered with oral contrast only as the patient is allergic to IV contrast. Labs come back actually within normal limits. CT scan shows worsening inflammation around the diverticulitis area per radiologist. Patient is discussed with Dr. Johnson who recommends IV antibiotics and observation admission. Patient is given 3 g Unasyn IV as well as 1 mg hydromorphone IV, and 10 mg Bentyl by mouth. Call was placed to the hospitalist for admission. Diagnosis Primary Impression: Diverticulitis Qualified Code: K57.32 - Diverticulitis of large intestine without perforation or abscess without bleeding Additional Impression: Failure of outpatient treatment Admitting Information Admitting Physician Requests: Observation Condition: Stable Min Gordon Jul 20, 2016 17:22
[2016-07-20] MEDS ORDERED: HYDROmorphone HCL PF 1 MG/ML VIAL IV PUSH ONE (17:30)
[2016-07-20 18:00] VITALS: BP 116/71; PULSE 78; RESP 16; O2SAT 98
[2016-07-20] MEDS ORDERED: BISACODYL 10 MG SUPP PR PRN (19:45)
[2016-07-20] MEDS ORDERED: SODIUM CHLORIDE 0.9% FLUSH 5 ML FLUSH FLUSH PRN (19:45)
--- NOTE | 2016-07-20 19:47 | HHI.HP ---
HPI Service [facility] ([place], [place])ists Primary Care Physician No Primary Care Physician Admission Diagnosis Diverticulitis Diagnoses: (1) Diverticulitis Diagnosis: Principal (2) Failure of outpatient treatment Diagnosis: Principal (3) Dehydration Diagnosis: Principal Travel History International Travel<30 Days: No Contact w/Intl Traveler <30 Da: No Traveled to Known Affected Are: No History of Present Illness This is a 51-year-old female with no significant PMH who presented to the ER with complaints of abdominal pain x1 wk. Denies nausea, vomiting or diarrhea. Seen in ER on 07/09/16 for similar complaints, U/a w/ UTI, CT Abd/Pelvis w/ mild uncomplicated diverticulitis, d/c'd from ER w/ Cipro/Flagyl PO x10 days, completed antibiotics as directed. On arrival, BP 130/70, HR 98, O2 sat 98% on RA, Afebrile. WBC normal. Chemistry unremarkable except for GFR 71. Lactic Acid normal at 1.2. UA negative. CT Abd/Pelvis w/ increase in inflammatory changes since 07/09/16 surrounding left sigmoid colon. S/p Unasyn IV in ER. Review of Systems Except as stated in HPI: all other systems reviewed are Neg ROS: 14 point review of systems otherwise negative. Past Family Social History Past Medical History PMH: None Past Surgical History PAST SURGICAL HISTORY: , Hysterectomy, Tonsillectomy, Bunionectomy Allergies: Coded Allergies: Erythromycin (Verified Allergy, Severe, Anaphylaxis, 07/20/16) Acetaminophen (Verified Allergy, Intermediate, Nausea/Vomiting, 07/20/16) Iodine (Verified Allergy, Intermediate, Hives, 07/20/16) Morphine (Verified Allergy, Intermediate, Hives, 07/20/16) Contrast Media (Verified Allergy, Mild, Hives, 07/20/16) Nonsteroidal Anti-Inflammatory Agts (Verified Allergy, Mild, Nausea/ Vomiting, 07/20/16) Reglan (Verified Allergy, Mild, Rash, 07/20/16) Family History PAST FAMILY HISTORY: Reviewed, positive for CAD Social History PAST SOCIAL HISTORY: Occasional alcohol. Negative for tobacco or drugs. Physical Exam Vital Signs Vital Signs Date Time Temp Pulse Resp B/P Pulse Ox O2 Delivery O2 Flow Rate FiO2 07/20/16 18:00 78 16 116/71 98 Room Air 07/20/16 16:45 93 16 127/87 97 Room Air 07/20/16 14:45 88 16 118/71 98 Room Air 07/20/16 13:55 96 18 07/20/16 13:46 98.3 98 17 130/70 98 Physical Exam PE: GENERAL: Middle-aged white female in no acute distress, however appears to feel unwell. HEENT: PERRLA, EOMI. No scleral icterus or conjunctival pallor. No lid lag or facial droop. CARDIOVASCULAR: Regular rate and rhythm. No obvious murmurs to auscultation. No chest tenderness to palpation. RESPIRATORY: No obvious rhonchi or wheezing. Clear to auscultation. Breath sounds equal bilaterally. GASTROINTESTINAL: Abdomen soft, RLQ tenderness to palpation, nondistended. BS normal. MUSCULOSKELETAL: Extremities without clubbing, cyanosis, or edema. No obvious deformities. NEUROLOGICAL: Awake, alert and oriented x4. No focal neurologic deficits. Moving both upper and lower extremities spontaneously. Laboratory Laboratory Tests Test 07/20/16 07/20/16 14:10 14:40 Urine Color YELLOW Urine Turbidity CLEAR Urine pH 5.5 Urine Specific [place] 1.011 Urine Protein NEG Urine Glucose (UA) NEG Urine Ketones NEG Urine Occult Blood TRACE Urine Nitrite NEG Urine Bilirubin NEG Urine Urobilinogen LESS THAN 2.0 Urine Leukocyte Esterase NEG Urine RBC LESS THAN 1 Urine WBC 1 Urine Squamous Epithelial <1 Cells Urine Mucus FEW Microscopic Urinalysis Comment CULT NOT INDICATED White Blood Count 5.6 Red Blood Count 4.22 Hemoglobin 13.5 Hematocrit 39.7 Mean Corpuscular Volume 94.1 Mean Corpuscular Hemoglobin 32.0 Mean Corpuscular Hemoglobin 34.0 Concent Red Cell Distribution Width 13.1 Platelet Count 228 Mean Platelet Volume 8.3 Neutrophils (%) (Auto) 71.8 Lymphocytes (%) (Auto) 18.9 Monocytes (%) (Auto) 7.2 Eosinophils (%) (Auto) 1.7 Basophils (%) (Auto) 0.4 Neutrophils # (Auto) 4.0 Lymphocytes # (Auto) 1.0 Monocytes # (Auto) 0.4 Eosinophils # (Auto) 0.1 Basophils # (Auto) 0.0 CBC Comment DIFF FINAL Differential Comment Prothrombin Time 11.5 Prothromb Time International 1.0 Ratio Activated Partial 28.3 Thromboplast Time Sodium Level 141 Potassium Level 4.1 Chloride Level 105 Carbon Dioxide Level 27.1 Anion Gap 9 Blood Urea Nitrogen 14 Creatinine 0.84 Estimat Glomerular Filtration 71 Rate Random Glucose 107 Lactic Acid Level 1.2 Calcium Level 9.1 Total Bilirubin 0.3 Aspartate Amino Transf 17 (AST/SGOT) Alanine Aminotransferase 25 (ALT/SGPT) Alkaline Phosphatase 69 Total Protein 7.2 Albumin 3.6 Lipase 231 Result Diagram: 07/20/16 1440 07/20/16 1440 Assessment and Plan Problem List: (1) Diverticulitis ICD Code: K57.92 Status: Acute (2) Failure of outpatient treatment ICD Code: Z78.9 Status: Acute (3) Dehydration ICD Code: E86.0 Status: Acute Assessment and Plan A/P: 1. Diverticulitis: c/o abdominal pain, CT Abd/Pelvis w/ mild interval increase in inflammatory changes since 07/09/16 surrounding left side of sigmoid colon, characteristic of acute diverticulitis, images reviewed by me. Analgesics/antiemetics as needed. S/p Unasyn IV in ER, will continue w/ IV Abx , IVF for hydration. 2. Failed Outpatient Tx: recent eval in ER 07/09/16 for similar symptoms, CT Abd /Pelvis 07/09/16 w/ mild uncomplicated diverticulitis, d/c'd w/ Cipro/Flagyl PO, completed 10 day course of antibiotics w/ ongoing symptoms and progression of inflammation on imaging. Continue w/ IV Zosyn. 3. Dehydration: GFR 71, BUN/Creatinine normal, recent UTI resolved, continue w / IVF for hydration, repeat labs in am. 4. DVT Prophylaxis: SCD/Teds. 5. Social work for d/c planning as needed. 6. Case discussed w/ ER physician at length. Physician Certification 2 Midnight Certification Type: Admission for Inpatient Services Order for Inpatient Services The services are ordered in accordance with Medicare regulations or non- Medicare payer requirements, as applicable. In the case of services not specified as inpatient-only, they are appropriately provided as inpatient services in accordance with the 2-midnight benchmark. Estimated LOS (days): 2 days is the estimated time the patient will need to remain in the hospital, assuming treatment plan goals are met and no additional complications. Post-Hospital Plan: Home Problem Qualifiers (1) Diverticulitis: Qualified Code: K57.32 - Diverticulitis of large intestine without perforation or abscess without bleeding Loretta Hooper MD Jul 20, 2016 19:47
[2016-07-20 20:00] VITALS: BP 104/60; PULSE 80; RESP 16; O2SAT 98
[2016-07-20] MEDS: SODIUM CHLOR 0.9% 1000 ML INJ 1,000 ML IV SCH (20:08)
[2016-07-20] MEDS: ONDANSETRON HCL 4 MG/2 ML VIAL IVP PRN (20:10)
[2016-07-20] MEDS: SODIUM CHLORIDE 0.9% FLUSH 5 ML FLUSH FLUSH SCH (20:50)
[2016-07-20 21:40] VITALS: BP 106/64; PULSE 80; RESP 18; TEMP 98.8; O2SAT 100
--- NOTE | 2016-07-20 22:27 | PD ---
Data Data Last Documented VS Vital Signs Date Time Temp Pulse Resp B/P Pulse Ox O2 Delivery O2 Flow Rate FiO2 07/20/16 18:00 78 16 116/71 98 Room Air 07/20/16 13:46 98.3 Orders Urinalysis - C+S If Indicated (07/20/16 14:02) Ed Urine Pregnancytest Poc (07/20/16 14:02) Complete Blood Count With Diff (07/20/16 14:15) Comprehensive Metabolic Panel (07/20/16 14:15) Lipase (07/20/16 14:15) Lactic Acid (07/20/16 14:15) Prothrombin Time / Inr (Pt) (07/20/16 14:15) Act Partial Throm Time (Ptt) (07/20/16 14:15) Iv Access Insert/Monitor (07/20/16 14:15) Ecg Monitoring (07/20/16 14:15) Oximetry (07/20/16 14:15) NPO (07/20/16 14:15) Ondansetron Inj (Zofran Inj) (07/20/16 14:15) Sodium Chlor 0.9% 1000 Ml Inj (Ns 1000 M (07/20/16 14:15) Sodium Chloride 0.9% Flush (Ns Flush) (07/20/16 14:15) Ketorolac Inj (Toradol Inj) (07/20/16 14:15) Ct Abd/Pel W/O Iv Contrast (07/20/16 14:39) Oral Contrast - Adult (07/20/16 14:44) Diatrizoate Liq ( Gastroview Liq) (07/20/16 14:51) Dicyclomine (Bentyl) (07/20/16 16:15) Ampicillin-Sulbactam Inj (Unasyn Inj) (07/20/16 17:15) Hydromorphone Pf Inj (Dilaudid Pf Inj) (07/20/16 17:30) Admit Order (Ed Use Only) (07/20/16 18:13) Labs Laboratory Tests Test 07/20/16 07/20/16 14:10 14:40 Urine Color YELLOW Urine Turbidity CLEAR Urine pH 5.5 Urine Specific [place] 1.011 Urine Protein NEG mg/dL Urine Glucose (UA) NEG mg/dL Urine Ketones NEG mg/dL Urine Occult Blood TRACE Urine Nitrite NEG Urine Bilirubin NEG Urine Urobilinogen LESS THAN 2.0 MG/DL Urine Leukocyte Esterase NEG Urine RBC LESS THAN 1 /hpf Urine WBC 1 /hpf Urine Squamous Epithelial <1 /hpf Cells Urine Mucus FEW /lpf Microscopic Urinalysis Comment CULT NOT INDICATED White Blood Count 5.6 TH/MM3 Red Blood Count 4.22 MIL/MM3 Hemoglobin 13.5 GM/DL Hematocrit 39.7 % Mean Corpuscular Volume 94.1 FL Mean Corpuscular Hemoglobin 32.0 PG Mean Corpuscular Hemoglobin 34.0 % Concent Red Cell Distribution Width 13.1 % Platelet Count 228 TH/MM3 Mean Platelet Volume 8.3 FL Neutrophils (%) (Auto) 71.8 % Lymphocytes (%) (Auto) 18.9 % Monocytes (%) (Auto) 7.2 % Eosinophils (%) (Auto) 1.7 % Basophils (%) (Auto) 0.4 % Neutrophils # (Auto) 4.0 TH/MM3 Lymphocytes # (Auto) 1.0 TH/MM3 Monocytes # (Auto) 0.4 TH/MM3 Eosinophils # (Auto) 0.1 TH/MM3 Basophils # (Auto) 0.0 TH/MM3 CBC Comment DIFF FINAL Differential Comment Prothrombin Time 11.5 SEC Prothromb Time International 1.0 RATIO Ratio Activated Partial 28.3 SEC Thromboplast Time Sodium Level 141 MEQ/L Potassium Level 4.1 MEQ/L Chloride Level 105 MEQ/L Carbon Dioxide Level 27.1 MEQ/L Anion Gap 9 MEQ/L Blood Urea Nitrogen 14 MG/DL Creatinine 0.84 MG/DL Estimat Glomerular Filtration 71 ML/MIN Rate Random Glucose 107 MG/DL Lactic Acid Level 1.2 mmol/L Calcium Level 9.1 MG/DL Total Bilirubin 0.3 MG/DL Aspartate Amino Transf 17 U/L (AST/SGOT) Alanine Aminotransferase 25 U/L (ALT/SGPT) Alkaline Phosphatase 69 U/L Total Protein 7.2 GM/DL Albumin 3.6 GM/DL Lipase 231 U/L MDM Supervised Visit with KATHRYN: Yes Narrative Course Seen and examined by me in addition to KATHRYN. Agree with kathryn documentation. Abdomen is tender but soft. Still having significant pain. Agree with admission for failure of OP management of diverticulitis and continuing abdominal pain. Diagnosis Primary Impression: Diverticulitis Qualified Code: K57.32 - Diverticulitis of large intestine without perforation or abscess without bleeding Additional Impression: Failure of outpatient treatment Condition: Stable Jake Johnson MD Jul 20, 2016 22:27
[2016-07-21] VITALS (8 sets, daily range): BP systolic 98–134; BP diastolic 55–80; PULSE 72–88; RESP 16–20; TEMP 96.8–98.1; O2SAT 96–100
[2016-07-21] MEDS: PIPERACIL-TAZO 4.5 GM PREMIX 100 ML IV SCH ×4 (00:44→17:46)
[2016-07-21] MEDS: HYDROmorphone HCL PF 1 MG/ML VIAL IV PRN ×5 (00:45→21:07)
[2016-07-21] MEDS ORDERED: HYDROmorphone HCL PF 1 MG/ML VIAL IV PUSH ONE (05:30)
[2016-07-21] MEDS: ONDANSETRON HCL 4 MG/2 ML VIAL IVP PRN ×4 (05:36→23:02)
[2016-07-21] MEDS: SODIUM CHLOR 0.9% 1000 ML INJ 1,000 ML IV SCH ×2 (05:50→16:31)
[2016-07-21 08:47] LABS: AUTOMATED NEUTROPHIL # 2.7 TH/MM3 (1.8-7.7); BASOPHIL % 0.8 % (0.0-2.0); EOSINOPHIL # 0.2 TH/MM3 (0-0.4); EOSINOPHIL % 5.1 % (0.0-4.0); HEMATOCRIT 38.1 % (35.0-46.0); HEMO FLAGS DIFF FINAL; LYMPH % 30.4 % (9.0-44.0); LYMPHOCYTE # 1.5 TH/MM3 (1.0-4.8); MEAN CELL VOLUME 94.9 FL (80.0-100.0); MEAN CORPUSCULAR HEMOGLOBIN 32.2 PG (27.0-34.0); MEAN CORPUSCULAR HGB CONC 33.9 % (32.0-36.0); MONO % 9.1 % (0.0-8.0); NEUT % 54.6 % (16.0-70.0); PLATELET COUNT 235 TH/MM3 (150-450); RED BLOOD COUNT 4.01 MIL/MM3 (4.00-5.30); WHITE BLOOD COUNT 4.9 TH/MM3 (4.0-11.0)
[2016-07-21] MEDS: SODIUM CHLORIDE 0.9% FLUSH 5 ML FLUSH FLUSH SCH ×2 (08:52→21:00)
[2016-07-21 09:55] LABS: ALKALINE PHOSPHATASE 64 U/L (45-117); ANION GAP 7 MEQ/L (5-15); BICARBONATE 26.8 MEQ/L (21.0-32.0); BLOOD UREA NITROGEN 12 MG/DL (7-18); CHLORIDE 106 MEQ/L (98-107); POTASSIUM 3.6 MEQ/L (3.5-5.1); SODIUM (NA) 140 MEQ/L (136-145); TOTAL BILIRUBIN ADULT 0.5 MG/DL (0.2-1.0)
[2016-07-21] MEDS ORDERED: SUMAtriptan SUCCINATE 50 MG TAB PO PRN (10:00)
[2016-07-21 10:08] LABS: ALT (GPT) 23 U/L (10-53); AST (GOT) 20 U/L (15-37); GLOMERULAR FILTRATION RATE 64 ML/MIN (>89)
--- NOTE | 2016-07-21 11:12 | HHI.PR ---
Subjective Remarks Follow-up for abdominal pain and diverticulitis. Patient stated that she just has mild increase in pain. Deny nausea vomiting. Decreased by mouth intake. Deny any diarrhea or constipation. Complaining of increased bloating. She remained afebrile. She is also asking to restart her Nexium. Patient stated that she has to take Nexium no other Protonix. Also requesting Maxalt for her migraine. Objective Vitals Vital Signs Date Time Temp Pulse Resp B/P Pulse Ox O2 Delivery O2 Flow Rate FiO2 07/21/16 07:45 96.8 81 16 134/71 97 07/21/16 04:00 97.4 84 18 107/77 99 07/21/16 00:00 98.0 82 17 99/67 99 07/20/16 21:40 98.8 80 18 106/64 100 07/20/16 20:00 80 16 104/60 98 Room Air 07/20/16 18:00 78 16 116/71 98 Room Air 07/20/16 16:45 93 16 127/87 97 Room Air 07/20/16 14:45 88 16 118/71 98 Room Air 07/20/16 13:55 96 18 07/20/16 13:46 98.3 98 17 130/70 98 I/O 07/20/16 07/20/16 07/20/16 07/21/16 07/21/16 07/21/16 07:00 15:00 23:00 07:00 15:00 23:00 Intake Total 240 ml Output Total 450 ml Balance -210 ml Intake Oral 240 ml Output Urine Total 450 ml # Voids 1 Result Diagram: 07/21/16 0800 07/21/16 0800 Imaging Last Impressions Abdomen/Pelvis CT 07/20/16 1439 Signed Impressions: Service Date/Time: Wednesday, July 20, 2016 16:11 - CONCLUSION: Mild interval increase in inflammatory changes since the 07/09/2016 exam surrounding the left side of sigmoid colon. This remains characteristic of acute diverticulitis. Lionel Chahal MD Objective Remarks GENERAL: in NAD CARDIOVASCULAR: Regular rate and rhythm without murmurs, gallops, or rubs. RESPIRATORY: Breath sounds equal bilaterally. No accessory muscle use. GASTROINTESTINAL: Abdomen soft. + TTP in left lower quadrant. Negative for any peritoneal signs. Positive for distention. MUSCULOSKELETAL: No cyanosis, or edema. BACK: Nontender without obvious deformity. No CVA tenderness. Medications and IVs Current Medications Ondansetron HCl 4 mg 4 mg ONCE ONCE IVP Last administered on 07/20/16 14:38; Start 07/20/16 at 14:15; Stop 07/20/16 at 14:19; Status DC Sodium Chloride (NS 1000 ml Inj) 1,000 ml @ 1,000 mls/hr Q1H IV Last administered on 07/20/16 14:37; Start 07/20/16 at 14:15; Stop 07/20/16 at 15:14 ; Status DC IV Flush (NS Flush) 2 ml UNSCH PRN IVF FLUSH AFTER USING IV ACCESS; Start 07/20 at 14:15 Ketorolac Tromethamine (Toradol Inj) 30 mg ONCE ONCE IVP Last administered on 07/20/16 14:38; Start 07/20/16 at 14:15; Stop 07/20/16 at 14:19; Status DC Diatrizoate Meglum/ Diatrizoate Sod ( Gastroview Liq) 18 ml STK-MED ONCE .ROUTE Last administered on 07/20/16 14:57; Start 07/20/16 at 14:51; Stop at 14:52; Status DC Dicyclomine HCl 20 mg 20 mg ONCE ONCE PO Last administered on 07/20/16 16:54 ; Start 07/20/16 at 16:15; Stop 07/20/16 at 16:16; Status DC Ampicillin Sodium/ Sulbactam Sodium/ Sodium Chloride (Unasyn Inj/NS Inj) 100 ml @ 200 mls/hr ONCE ONCE IV Last administered on 07/20/16 17:16; Start at 17:15; Stop 07/20/16 at 17:44; Status DC Hydromorphone HCl 1 mg 1 mg ONCE ONCE IV PUSH Last administered on 07/20/16 17:27; Start 07/20/16 at 17:30; Stop 07/20/16 at 17:31; Status DC Piperacillin Sod/ Tazobactam Sod 100 ml @ 200 mls/hr Q6H IV Last administered on 07/21/16 05:50; Start 07/21/16 at 01:00 Sodium Chloride (NS 1000 ml Inj) 1,000 ml @ 100 mls/hr Q10H IV Last administered on 07/21/16 05:50; Start 07/20/16 at 19:44 IV Flush (NS Flush) 2 ml UNSCH PRN FLUSH FLUSH AFTER USING IV ACCESS; Start at 19:45 IV Flush (NS Flush) 2 ml BID FLUSH ; Start 07/20/16 at 21:00 Ondansetron HCl (Zofran Inj) 4 mg Q6H PRN IVP NAUSEA OR VOMITING Last administered on 07/21/16 05:36; Start 07/20/16 at 19:45 Bisacodyl (Dulcolax Supp) 10 mg DAILY PRN LA CONSTIPATION; Start 07/20/16 at 19 :45 Hydromorphone HCl (Dilaudid Pf Inj) 1 mg Q3H PRN IV Pain 6-10 Last administered on 07/21/16 04:22; Start 07/20/16 at 19:45 Oxycodone HCl (Roxicodone) 5 mg Q4H PRN PO PAIN SCALE 3 TO 5 Last administered on 07/20/16 20:08; Start 07/20/16 at 19:45; Stop 07/21/16 at 05:20; Status DC Oxycodone HCl (Roxicodone) 10 mg Q4H PRN PO PAIN SCALE 3 TO 5; Start 07/21/16 at 07:45 Hydromorphone HCl (Dilaudid Pf Inj) 1 mg ONCE ONCE IV PUSH Last administered on 07/21/16 05:36; Start 07/21/16 at 05:30; Stop 07/21/16 at 05:31; Status DC Patient Own Medication nexium 40 mg PO daily. DAILY PO ; Start 07/21/16 at 10:00 ; Status Hold Sumatriptan Succinate (Imitrex) 50 mg DAILY PRN PO MIGRAINE HEADACHE; Start at 10:00 A/P Problem List: (1) Diverticulitis ICD Code: K57.92 Status: Acute (2) Failure of outpatient treatment ICD Code: Z78.9 Status: Acute (3) Dehydration ICD Code: E86.0 Status: Acute Assessment and Plan Diverticulitis -Failed outpatient treatment with Cipro and Flagyl for 5 days. - CT Abd/Pelvis w/ mild interval increase in inflammatory changes since 07/09/16 surrounding left side of sigmoid colon, characteristic of acute diverticulitis. Analgesics/antiemetics as needed. -Patient continues to have no white count and remained afebrile. -Continue with Zosyn and with serial abdominal exams. Dehydration -Due to decreased by mouth intake. Improving. Continue with IV fluids. Continue monitor creatinine. GERD -will start nexium per patient. she stated other PPIs does not work. Migraines. -do not have maxalt on formulary. Will start sumatriptan. DVT Prophylaxis: SCD/Teds. Discharge Planning Patient continue to requires IV antibiotics. She failed outpatient therapy. Problem Qualifiers (1) Diverticulitis: Qualified Code: K57.32 - Diverticulitis of large intestine without perforation or abscess without bleeding Concepcion Monk MD Jul 21, 2016 11:12
[2016-07-21] MEDS: ESOMEPRAZOLE 40 MG PO SCH (11:40)
[2016-07-21] MEDS: LACTOBACILLUS ACIDOPHILUS 1 GM PACKET PO SCH ×2 (13:00→17:46)
[2016-07-22] VITALS (7 sets, daily range): BP systolic 95–114; BP diastolic 54–89; PULSE 74–92; RESP 16–18; TEMP 98.3–98.7; O2SAT 95–100
[2016-07-22] MEDS: SODIUM CHLOR 0.9% 1000 ML INJ 1,000 ML IV SCH ×3 (00:49→21:57)
[2016-07-22] MEDS: PIPERACIL-TAZO 4.5 GM PREMIX 100 ML IV SCH ×4 (00:49→18:15)
[2016-07-22] MEDS: HYDROmorphone HCL PF 1 MG/ML VIAL IV PRN ×2 (00:49→04:00)
[2016-07-22] MEDS: ONDANSETRON HCL 4 MG/2 ML VIAL IVP PRN (04:08)
[2016-07-22] MEDS ORDERED: PROCHLORPERAZINE INJ 10 MG/2 ML VIAL IVS ONE (07:00)
[2016-07-22] MEDS: ESOMEPRAZOLE 40 MG PO SCH (09:47)
[2016-07-22] MEDS: LACTOBACILLUS ACIDOPHILUS 1 GM PACKET PO SCH ×3 (09:48→18:15)
[2016-07-22] MEDS: SODIUM CHLORIDE 0.9% FLUSH 5 ML FLUSH FLUSH SCH ×2 (09:49→21:54)
--- NOTE | 2016-07-22 10:20 | HHI.PR ---
Subjective Remarks Follow-up for abdominal pain and acute diverticulitis. Patient had episode of emesis this morning. Patient stated she's not doing well although she is sitting up comfortably in bed. She refused blood work this morning and stated that she is a hard stick. Continues to complain about abdominal pain, nausea, vomiting. Patient is asking for soup at the moment. Objective Vitals Vital Signs Date Time Temp Pulse Resp B/P Pulse Ox O2 Delivery O2 Flow Rate FiO2 07/22/16 09:56 114/89 07/22/16 08:00 98.4 74 16 96/65 96 07/22/16 04:00 98.7 74 17 102/64 96 07/22/16 00:00 98.6 77 18 105/64 95 07/21/16 20:00 98.1 76 17 109/57 97 07/21/16 16:00 98.0 72 16 99/55 96 07/21/16 14:20 97.9 78 20 99/67 100 07/21/16 13:10 97.6 88 16 117/80 96 07/21/16 12:00 97.6 78 18 98/60 98 I/O 07/21/16 07/21/16 07/21/16 07/22/16 07/22/16 07/22/16 07:00 15:00 23:00 07:00 15:00 23:00 Intake Total 240 ml 360 ml 2560 ml 240 ml Output Total 450 ml Balance -210 ml 360 ml 2560 ml 240 ml Intake Oral 240 ml 360 ml 480 ml 240 ml IV Total 2080 ml Output Urine Total 450 ml # Voids 1 7 6 3 # Bowel Movements 3 4 1 Result Diagram: 07/21/16 0800 07/21/16 0800 Objective Remarks GENERAL: in NAD sitting up comfortably in bed. When patient was moving from a sitting to a laying down position she was in no pain. CARDIOVASCULAR: Regular rate and rhythm without murmurs, gallops, or rubs. RESPIRATORY: Breath sounds equal bilaterally. No accessory muscle use. GASTROINTESTINAL: Abdomen soft. + TTP in left lower quadrant. Negative for any peritoneal signs. Positive for distention that has improved drastically. MUSCULOSKELETAL: No cyanosis, or edema. BACK: Nontender without obvious deformity. No CVA tenderness. Medications and IVs Current Medications Ondansetron HCl 4 mg 4 mg ONCE ONCE IVP Last administered on 07/20/16 14:38; Start 07/20/16 at 14:15; Stop 07/20/16 at 14:19; Status DC Sodium Chloride (NS 1000 ml Inj) 1,000 ml @ 1,000 mls/hr Q1H IV Last administered on 07/20/16 14:37; Start 07/20/16 at 14:15; Stop 07/20/16 at 15:14 ; Status DC IV Flush (NS Flush) 2 ml UNSCH PRN IVF FLUSH AFTER USING IV ACCESS; Start 07/20 at 14:15 Ketorolac Tromethamine (Toradol Inj) 30 mg ONCE ONCE IVP Last administered on 07/20/16 14:38; Start 07/20/16 at 14:15; Stop 07/20/16 at 14:19; Status DC Diatrizoate Meglum/ Diatrizoate Sod ( Gastroview Liq) 18 ml STK-MED ONCE .ROUTE Last administered on 07/20/16 14:57; Start 07/20/16 at 14:51; Stop at 14:52; Status DC Dicyclomine HCl 20 mg 20 mg ONCE ONCE PO Last administered on 07/20/16 16:54 ; Start 07/20/16 at 16:15; Stop 07/20/16 at 16:16; Status DC Ampicillin Sodium/ Sulbactam Sodium/ Sodium Chloride (Unasyn Inj/NS Inj) 100 ml @ 200 mls/hr ONCE ONCE IV Last administered on 07/20/16 17:16; Start at 17:15; Stop 07/20/16 at 17:44; Status DC Hydromorphone HCl 1 mg 1 mg ONCE ONCE IV PUSH Last administered on 07/20/16 17:27; Start 07/20/16 at 17:30; Stop 07/20/16 at 17:31; Status DC Piperacillin Sod/ Tazobactam Sod 100 ml @ 200 mls/hr Q6H IV Last administered on 07/22/16 06:39; Start 07/21/16 at 01:00 Sodium Chloride (NS 1000 ml Inj) 1,000 ml @ 100 mls/hr Q10H IV Last administered on 07/22/16 00:49; Start 07/20/16 at 19:44 IV Flush (NS Flush) 2 ml UNSCH PRN FLUSH FLUSH AFTER USING IV ACCESS Last administered on 07/21/16 11:45; Start 07/20/16 at 19:45 IV Flush (NS Flush) 2 ml BID FLUSH ; Start 07/20/16 at 21:00 Ondansetron HCl (Zofran Inj) 4 mg Q6H PRN IVP NAUSEA OR VOMITING Last administered on 07/22/16 04:08; Start 07/20/16 at 19:45 Bisacodyl (Dulcolax Supp) 10 mg DAILY PRN IN CONSTIPATION; Start 07/20/16 at 19 :45 Hydromorphone HCl (Dilaudid Pf Inj) 1 mg Q3H PRN IV Pain 6-10 Last administered on 07/22/16 04:00; Start 07/20/16 at 19:45 Oxycodone HCl (Roxicodone) 5 mg Q4H PRN PO PAIN SCALE 3 TO 5 Last administered on 07/20/16 20:08; Start 07/20/16 at 19:45; Stop 07/21/16 at 05:20; Status DC Oxycodone HCl (Roxicodone) 10 mg Q4H PRN PO PAIN SCALE 3 TO 5 Last administered on 07/22/16 09:51; Start 07/21/16 at 07:45 Hydromorphone HCl (Dilaudid Pf Inj) 1 mg ONCE ONCE IV PUSH Last administered on 07/21/16 05:36; Start 07/21/16 at 05:30; Stop 07/21/16 at 05:31; Status DC Patient Own Medication nexium 40 mg PO daily. DAILY PO Last administered on 09:47; Start 07/21/16 at 10:00 Sumatriptan Succinate (Imitrex) 50 mg DAILY PRN PO MIGRAINE HEADACHE Last administered on 07/21/16 12:06; Start 07/21/16 at 10:00 Lactobacillus Acidophilus (Lactinex Pkt) 1 gm TID PO Last administered on 09:48; Start 07/21/16 at 13:00 Prochlorperazine Edisylate (Compazine Inj) 10 mg ONCE ONCE IVS Last administered on 3/20/17at 07:35; Start 07/22/16 at 07:00; Stop 07/22/16 at 07:01 ; Status DC A/P Problem List: (1) Diverticulitis ICD Code: K57.92 Status: Acute (2) Failure of outpatient treatment ICD Code: Z78.9 Status: Acute (3) Dehydration ICD Code: E86.0 Status: Acute Assessment and Plan Diverticulitis -Failed outpatient treatment with Cipro and Flagyl for 5 days. - CT Abd/Pelvis w/ mild interval increase in inflammatory changes since 07/09/16 surrounding left side of sigmoid colon, characteristic of acute diverticulitis. Analgesics/antiemetics as needed. -Patient continues to have no white count and remained afebrile. She refused blood work today and I stated to patient that I do need blood work to monitor her clinical course here. Dealt with nurse who will get lab to obtain blood work. -Continue with Zosyn and with serial abdominal exams. -Clinically patient seems to do better but she is denying this. Will consult GI for further recommendations. Dehydration -Due to decreased by mouth intake. Improving. Continue with IV fluids. Continue monitor creatinine. GERD -on nexium per patient. she stated other PPIs does not work. Migraines. -do not have maxalt on formulary. on sumatriptan PRN. DVT Prophylaxis: SCD/Teds. Discharge Planning Patient continue to requires IV antibiotics. She failed outpatient therapy. Will consult GI. Problem Qualifiers (1) Diverticulitis: Qualified Code: K57.32 - Diverticulitis of large intestine without perforation or abscess without bleeding Concepcion Monk MD Jul 22, 2016 10:20
[2016-07-22 12:35] LABS: HEMATOCRIT 42.7 % (35.0-46.0); MEAN CELL VOLUME 94.1 FL (80.0-100.0); MEAN CORPUSCULAR HEMOGLOBIN 31.6 PG (27.0-34.0); MEAN CORPUSCULAR HGB CONC 33.6 % (32.0-36.0); PLATELET COUNT 212 TH/MM3 (150-450); RED BLOOD COUNT 4.54 MIL/MM3 (4.00-5.30); RED CELL DISTRIBUTION WIDTH 13.1 % (11.6-17.2)
[2016-07-22 12:37] LABS: REVIEW FLAG FINAL
[2016-07-22 12:49] LABS: BICARBONATE 27.8 MEQ/L (21.0-32.0); POTASSIUM 4.1 MEQ/L (3.5-5.1)
--- NOTE | 2016-07-22 16:33 | PD.CONS ---
HPI History of Present Illness This is a 51 year old female who was recently diagnosed with diverticulitis and came to the ER for persistent abdominal pain. She tells me that she was told she had diverticulitis many years ago, but did not have any problems with it. She then developed abdominal pain about 2 weeks ago. She was seen in the ER (07/09/16) and CT scan abdomen without contrast revealed mild uncomplicated diverticulitis of the sigmoid colon. She was discharged home with Cipro and Flagyl x 10 days. However, she did not have any improvement with this and returned to the ER after 5 days of antibiotics. She reports that she continues to have significant abdominal pain. She describes this as a sharp pain in her LLQ, epigastric area, radiating to her lower abdomen. Initially, this was constant, but states that it has improved in intensity and is now intermittent. She denies any fevers or chills. She reports one episode of nausea/vomiting last night, but has not had any further episodes. She also reports that she has been having a few loose stools, but denies having any blood or mucous. Her symptoms are not aggravated by po intake. She has good relief with the pain meds. She last had a colonoscopy about 2-3 years ago in [place] and reports that she was told that she had an anal fissure at the time. She gets yearly endoscopies for Lainez's esophagus and states that she last had this with Dr. Mace in [facility] about 1 year ago. She reports that this was stable. She is on Nexium for her GERD/Lainez's and is asymptomatic as long as she takes her PPI. 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 (Marcella Beth) PFSH Past Medical History Lainez's Esophagus GERD Anal Fissure Diverticulitis Past Surgical History Hysterectomy Tonsillectomy Bunionectomy EGD/Colonoscopy (Marcella Beth) Coded Allergies: Erythromycin (Verified Allergy, Severe, Anaphylaxis, 07/20/16) Acetaminophen (Verified Allergy, Intermediate, Nausea/Vomiting, 07/20/16) Iodine (Verified Allergy, Intermediate, Hives, 07/20/16) Morphine (Verified Allergy, Intermediate, Hives, 07/20/16) Contrast Media (Verified Allergy, Mild, Hives, 07/20/16) Nonsteroidal Anti-Inflammatory Agts (Verified Allergy, Mild, Nausea/ Vomiting, 07/20/16) Reglan (Verified Allergy, Mild, Rash, 07/20/16) Medications Allergies Coded Allergies Type Severity Reaction Last Updated Verified Erythromycin Allergy Severe Anaphylaxis 07/20/16 Yes Acetaminophen Allergy Intermediate Nausea/Vomiting 07/20/16 Yes Iodine Allergy Intermediate Hives 07/20/16 Yes Morphine Allergy Intermediate Hives 07/20/16 Yes Contrast Media Allergy Mild Hives 07/20/16 Yes Nonsteroidal Anti-Inflammatory Agts Allergy Mild Nausea/Vomiting 07/20/16 Yes Reglan Allergy Mild Rash 07/20/16 Yes Active Scripts Medications Dose Route/Sig Days Date Category Ciprofloxacin (Ciprofloxacin HCl) 500 Mg Tab 500 Mg PO BID 10 07/09/16 Rx Metronidazole 500 Mg Tab 500 Mg PO TID 10 07/09/16 Rx Diflucan (Fluconazole) 150 Mg Tab 150 Mg PO ONCE 07/09/16 Rx Zofran Odt (Ondansetron Odt) 4 Mg Tab 4 Mg SL Q6HR PRN 07/09/16 Rx Tramadol (Tramadol HCl) 50 Mg Tab 50 Mg PO Q6H PRN 07/09/16 Rx Nexium (Esomeprazole DR) 40 Mg Capdr 40 Mg PO DAILY 05/15/16 Reported Family History Maternal grandmother from colon cancer Maternal grandfather from pancreatic cancer Social History Occasional alcohol. Negative for tobacco or drugs. (Marcella Beth) Review of Systems Constitutional: COMPLAINS OF: Fatigue, DENIES: Fever, Weight loss, Chills, Change in appetite Respiratory: DENIES: Cough Cardiovascular: DENIES: Chest pain Gastrointestinal: COMPLAINS OF: Abdominal pain, Diarrhea, Nausea, Vomiting, Heartburn, DENIES: Black stools, Bloody stools, Constipation, Swelling of Abdomen, Hematemesis Musculoskeletal: DENIES: Back pain Integumentary: DENIES: Abnormal pigmentation, Rash Neurologic: DENIES: Headache Psychiatric: DENIES: Confusion (Marcella Beth) GI Exam Vitals I&O Vital Signs Date Time Temp Pulse Resp B/P Pulse Ox O2 Delivery O2 Flow Rate FiO2 07/22/16 12:00 98.3 77 16 99/67 97 07/22/16 09:56 114/89 07/22/16 08:00 98.4 74 16 96/65 96 07/22/16 04:00 98.7 74 17 102/64 96 07/22/16 00:00 98.6 77 18 105/64 95 07/21/16 20:00 98.1 76 17 109/57 97 I/O 07/21/16 07/21/16 07/21/16 07/22/16 07/22/16 07/22/16 07:00 15:00 23:00 07:00 15:00 23:00 Intake Total 240 ml 360 ml 2560 ml 240 ml 827 ml Output Total 450 ml Balance -210 ml 360 ml 2560 ml 240 ml 827 ml Intake Oral 240 ml 360 ml 480 ml 240 ml IV Total 2080 ml 827 ml Output Urine Total 450 ml # Voids 1 7 6 3 # Bowel Movements 3 4 1 Imaging Last Impressions Abdomen/Pelvis CT 07/20/16 1439 Signed Impressions: Service Date/Time: Wednesday, July 20, 2016 16:11 - CONCLUSION: Mild interval increase in inflammatory changes since the 07/09/2016 exam surrounding the left side of sigmoid colon. This remains characteristic of acute diverticulitis. Lionel Chahal MD Laboratory Test 07/22/16 07/22/16 11:35 11:38 White Blood Count 6.0 TH/MM3 Red Blood Count 4.54 MIL/MM3 Hemoglobin 14.4 GM/DL Hematocrit 42.7 % Mean Corpuscular Volume 94.1 FL Mean Corpuscular Hemoglobin 31.6 PG Mean Corpuscular Hemoglobin 33.6 % Concent Red Cell Distribution Width 13.1 % Platelet Count 212 TH/MM3 Mean Platelet Volume 9.1 FL Hematology Comments Sodium Level 142 MEQ/L Potassium Level 4.1 MEQ/L Chloride Level 105 MEQ/L Carbon Dioxide Level 27.8 MEQ/L Anion Gap 9 MEQ/L Blood Urea Nitrogen 5 MG/DL Creatinine 0.90 MG/DL Estimat Glomerular Filtration 65 ML/MIN Rate Random Glucose 95 MG/DL Calcium Level 8.9 MG/DL Physical Examination HEENT: Normocephalic; atraumatic; no jaundice. CHEST: CTA CARDIAC: RRR ABDOMEN: Soft, nondistended, mild LLQ tenderness; no hepatosplenomegaly; bowel sounds are present in all four quadrants. EXTREMITIES: No clubbing, cyanosis, or edema. SKIN: Normal; no rash; no jaundice. TAX CREDIT LEASING CONSULTANT: No focal deficits; alert and oriented times three. (Marcella Beth) Assessment and Plan Plan ASSESSMENT: - Acute diverticulitis, failed outpatient tx. Pt reports that she was told many years ago that she had diverticulitis. Seen in the ER (07/09/16) and CT scan abdomen without contrast revealed mild uncomplicated diverticulitis of the sigmoid colon. She was discharged home with Cipro and Flagyl x 10 days, but returned if she did not have any improvement after 5 days of antibiotics. Abdomen/Pelvis CT (07/20/16)----> Mild interval increase in inflammatory changes since the 07/09/2016 exam surrounding the left side of sigmoid colon. This remains characteristic of acute diverticulitis. She c/o abdominal pain- has improved since being here in the hospital and is now intermittent. Her WBC is normal. She is afebrile. She has mild tenderness in LLQ and epigastric on exam. At this point, she seems to be improving on the Zosyn. Would recommend continuing current treatment and transitioning to po abx in am if she continues to do well. She will need colonoscopy in 6 weeks to follow up. - GERD/Barretts. States she had an EGD ~ 1 year ago in [place] (Dr. Mace). Asymptomatic on Nexium at home. Add PPI - N/V x 1 episode last night. No further episodes. Wanting her diet advanced- states she was eating sandwiches when she came in and does not know why she was placed back on liquids. PLAN: - Low residue diet - Cont. Zosyn - Add PPI - CBC in am - If continues to do well, then consider transitioning to po antibiotics in am - Supportive care - No nuts, seeds, popcorn - Will need colonoscopy in 6 weeks as outpatient - Further recommendations to follow based on results of above - Pt seen and examined by Dr. Lombardo and myself and this note is written on her behalf (Marcella Beth) Physician Comments seen, examined agree with above (Sonja Lombardo MD) Marcella Beth Jul 22, 2016 16:33 Sonja Lombardo MD Jul 23, 2016 10:06
[2016-07-22] MEDS: PANTOPRAZOLE SODIUM 40 MG VIAL IV PUSH SCH (18:15)
[2016-07-23] VITALS (7 sets, daily range): BP systolic 92–126; BP diastolic 57–70; PULSE 74–90; RESP 16–20; TEMP 97.1–98.9; O2SAT 94–100
[2016-07-23] MEDS: PIPERACIL-TAZO 4.5 GM PREMIX 100 ML IV SCH ×4 (00:54→18:32)
[2016-07-23] MEDS: HYDROmorphone HCL PF 1 MG/ML VIAL IV PRN ×2 (02:04→10:12)
[2016-07-23 09:44] LABS: HEMATOCRIT 38.6 % (35.0-46.0); MEAN CELL VOLUME 94.1 FL (80.0-100.0); MEAN CORPUSCULAR HEMOGLOBIN 32.8 PG (27.0-34.0); MEAN CORPUSCULAR HGB CONC 34.8 % (32.0-36.0); PLATELET COUNT 235 TH/MM3 (150-450); RED CELL DISTRIBUTION WIDTH 13.2 % (11.6-17.2); REVIEW FLAG FINAL; WHITE BLOOD COUNT 5.2 TH/MM3 (4.0-11.0)
[2016-07-23 09:52] LABS: BICARBONATE 28.3 MEQ/L (21.0-32.0); POTASSIUM 3.4 MEQ/L (3.5-5.1)
[2016-07-23] MEDS: SODIUM CHLORIDE 0.9% FLUSH 5 ML FLUSH FLUSH SCH ×2 (09:59→22:47)
[2016-07-23] MEDS: LACTOBACILLUS ACIDOPHILUS 1 GM PACKET PO SCH ×3 (09:59→18:32)
[2016-07-23] MEDS: ESOMEPRAZOLE 40 MG PO SCH (09:59)
--- NOTE | 2016-07-23 11:03 | HHI.PR ---
Subjective Remarks f/u for abdominal pain patient tolerating diet better. pain better controlled. no n/v she remains afebrile. Objective Vitals Vital Signs Date Time Temp Pulse Resp B/P Pulse Ox O2 Delivery O2 Flow Rate FiO2 07/23/16 10:08 108/64 07/23/16 07:55 97.1 76 18 95/62 99 07/23/16 05:38 98.2 79 16 92/62 98 07/23/16 00:00 98.6 76 18 97/68 94 07/22/16 20:00 98.7 90 17 95/54 96 07/22/16 16:00 98.7 92 16 114/77 100 07/22/16 12:00 98.3 77 16 99/67 97 I/O 07/22/16 07/22/16 07/22/16 07/23/16 07/23/16 07/23/16 07:00 15:00 23:00 07:00 15:00 23:00 Intake Total 240 ml 1667 ml 886 ml 780 ml 360 ml Balance 240 ml 1667 ml 886 ml 780 ml 360 ml Intake Oral 240 ml 840 ml 480 ml 360 ml IV Total 827 ml 886 ml 300 ml # Voids 3 3 2 # Bowel Movements 1 Result Diagram: 07/23/1615 07/23/1615 Objective Remarks GENERAL: in NAD sitting up comfortably in bed. When patient was moving from a sitting to a laying down position she was in no pain. CARDIOVASCULAR: Regular rate and rhythm without murmurs, gallops, or rubs. RESPIRATORY: Breath sounds equal bilaterally. No accessory muscle use. GASTROINTESTINAL: Abdomen soft. + TTP in left lower quadrant that has improved.. Negative for any peritoneal signs. no distention. MUSCULOSKELETAL: No cyanosis, or edema. BACK: Nontender without obvious deformity. No CVA tenderness. Medications and IVs Current Medications Ondansetron HCl 4 mg 4 mg ONCE ONCE IVP Last administered on 07/20/16 14:38; Start 07/20/16 at 14:15; Stop 07/20/16 at 14:19; Status DC Sodium Chloride (NS 1000 ml Inj) 1,000 ml @ 1,000 mls/hr Q1H IV Last administered on 07/20/16 14:37; Start 07/20/16 at 14:15; Stop 07/20/16 at 15:14 ; Status DC IV Flush (NS Flush) 2 ml UNSCH PRN IVF FLUSH AFTER USING IV ACCESS; Start 07/20 at 14:15 Ketorolac Tromethamine (Toradol Inj) 30 mg ONCE ONCE IVP Last administered on 07/20/16 14:38; Start 07/20/16 at 14:15; Stop 07/20/16 at 14:19; Status DC Diatrizoate Meglum/ Diatrizoate Sod ( Gastrosofi Liq) 18 ml STK-MED ONCE .ROUTE Last administered on 07/20/16 14:57; Start 07/20/16 at 14:51; Stop at 14:52; Status DC Dicyclomine HCl 20 mg 20 mg ONCE ONCE PO Last administered on 07/20/16 16:54 ; Start 07/20/16 at 16:15; Stop 07/20/16 at 16:16; Status DC Ampicillin Sodium/ Sulbactam Sodium/ Sodium Chloride (Unasyn Inj/NS Inj) 100 ml @ 200 mls/hr ONCE ONCE IV Last administered on 07/20/16 17:16; Start at 17:15; Stop 07/20/16 at 17:44; Status DC Hydromorphone HCl 1 mg 1 mg ONCE ONCE IV PUSH Last administered on 07/20/16 17:27; Start 07/20/16 at 17:30; Stop 07/20/16 at 17:31; Status DC Piperacillin Sod/ Tazobactam Sod 100 ml @ 200 mls/hr Q6H IV Last administered on 07/23/16 05:43; Start 07/21/16 at 01:00 Sodium Chloride (NS 1000 ml Inj) 1,000 ml @ 100 mls/hr Q10H IV Last administered on 07/22/16 21:57; Start 07/20/16 at 19:44 IV Flush (NS Flush) 2 ml UNSCH PRN FLUSH FLUSH AFTER USING IV ACCESS Last administered on 07/21/16 11:45; Start 07/20/16 at 19:45 IV Flush (NS Flush) 2 ml BID FLUSH Last administered on 07/23/16 09:59; Start 07/20/16 at 21:00 Ondansetron HCl (Zofran Inj) 4 mg Q6H PRN IVP NAUSEA OR VOMITING Last administered on 07/22/16 04:08; Start 07/20/16 at 19:45 Bisacodyl (Dulcolax Supp) 10 mg DAILY PRN [place] CONSTIPATION; Start 07/20/16 at 19 :45 Hydromorphone HCl (Dilaudid Pf Inj) 1 mg Q3H PRN IV Pain 6-10 Last administered on 07/23/16 10:12; Start 07/20/16 at 19:45 Oxycodone HCl (Roxicodone) 5 mg Q4H PRN PO PAIN SCALE 3 TO 5 Last administered on 07/20/16 20:08; Start 07/20/16 at 19:45; Stop 07/21/16 at 05:20; Status DC Oxycodone HCl (Roxicodone) 10 mg Q4H PRN PO PAIN SCALE 3 TO 5 Last administered on 07/23/16 05:46; Start 07/21/16 at 07:45 Hydromorphone HCl (Dilaudid Pf Inj) 1 mg ONCE ONCE IV PUSH Last administered on 07/21/16 05:36; Start 07/21/16 at 05:30; Stop 07/21/16 at 05:31; Status DC Patient Own Medication nexium 40 mg PO daily. DAILY PO Last administered on 09:59; Start 07/21/16 at 10:00 Sumatriptan Succinate (Imitrex) 50 mg DAILY PRN PO MIGRAINE HEADACHE Last administered on 07/21/16 12:06; Start 07/21/16 at 10:00 Lactobacillus Acidophilus (Lactinex Pkt) 1 gm TID PO Last administered on 09:59; Start 07/21/16 at 13:00 Prochlorperazine Edisylate (Compazine Inj) 10 mg ONCE ONCE IVS Last administered on 07/22/16 07:35; Start 07/22/16 at 07:00; Stop 07/22/16 at 07:01 ; Status DC Pantoprazole Sodium (Protonix Inj) 40 mg Q24H IV PUSH Last administered on 07/22 18:15; Start 07/22/16 at 18:00 A/P Problem List: (1) Diverticulitis ICD Code: K57.92 Status: Acute (2) Failure of outpatient treatment ICD Code: Z78.9 Status: Acute (3) Dehydration ICD Code: E86.0 Status: Acute Assessment and Plan Diverticulitis -Failed outpatient treatment with Cipro and Flagyl for 5 days. - CT Abd/Pelvis w/ mild interval increase in inflammatory changes since 07/09/16 surrounding left side of sigmoid colon, characteristic of acute diverticulitis. Analgesics/antiemetics as needed. -Patient continues to have no white count and remained afebrile. -she is doing a lot better today and tolerating diet. -on Zosyn. will switch do PO medication since she is doing very well and can tolerate PO intake. -appreciate GI's recommendations. Dehydration -Due to decreased by mouth intake. -RESOLVED with IVFs. GERD -on nexium per patient. she stated other PPIs does not work. Migraines. -do not have maxalt on formulary. on sumatriptan PRN. DVT Prophylaxis: SCD/Teds. Discharge Planning patient can switch to PO antibiotics if okay with GI. If she does well can d/c tomorrow. Problem Qualifiers (1) Diverticulitis: Qualified Code: K57.32 - Diverticulitis of large intestine without perforation or abscess without bleeding Concepcion Monk MD Jul 23, 2016 11:03
--- NOTE | 2016-07-23 16:38 | HHI.GIFU ---
GI Follow-up Note Consult Follow-up Subjective: Patient laying in bed comfortably,feeling better, still having abdominal pain.No nausea , vomiting today . Objective: PHYSICAL EXAMINATION: Vitals signs stable No fever Vital Signs Date Time Temp Pulse Resp B/P Pulse Ox O2 Delivery O2 Flow Rate FiO2 07/23/16 12:00 97.7 90 20 112/69 100 07/23/16 10:08 108/64 HEENT: Pupils round and reactive to light; normocephalic; atraumatic; no jaundice. Throat is clear. NECK: Neck is supple, no JVD, no lymphadenopathy. CHEST: Chest is clear to auscultation and percussion. CARDIAC: Regular rate and rhythm with no murmur gallop or rubs. ABDOMEN: Soft, nondistended, llq tender; no hepatosplenomegaly; bowel sounds are present in all four quadrants. EXTREMITIES: No clubbing, cyanosis, or edema. SKIN: Normal; no rash; no jaundice. 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 Available Data (labs, X- Rays, Procedues) : Laboratory Tests Test 07/22/16 07/22/16 07/23/16 11:35 11:38 09:15 White Blood Count 6.0 TH/MM3 5.2 TH/MM3 Red Blood Count 4.54 MIL/MM3 4.10 MIL/MM3 Hemoglobin 14.4 GM/DL 13.4 GM/DL Hematocrit 42.7 % 38.6 % Mean Corpuscular Volume 94.1 FL 94.1 FL Mean Corpuscular Hemoglobin 31.6 PG 32.8 PG Mean Corpuscular Hemoglobin 33.6 % 34.8 % Concent Red Cell Distribution Width 13.1 % 13.2 % Platelet Count 212 TH/MM3 235 TH/MM3 Mean Platelet Volume 9.1 FL 8.1 FL Hematology Comments Sodium Level 142 MEQ/L 140 MEQ/L Potassium Level 4.1 MEQ/L 3.4 MEQ/L Chloride Level 105 MEQ/L 105 MEQ/L Carbon Dioxide Level 27.8 MEQ/L 28.3 MEQ/L Anion Gap 9 MEQ/L 7 MEQ/L Blood Urea Nitrogen 5 MG/DL 5 MG/DL Creatinine 0.90 MG/DL 0.91 MG/DL Estimat Glomerular Filtration 65 ML/MIN 65 ML/MIN Rate Random Glucose 95 MG/DL 86 MG/DL Calcium Level 8.9 MG/DL 8.8 MG/DL ASSESSMENT/PLAN: diverticulitis , failed op therapy on iv antibiotics-clinically better family history of colon cancer -needs colonoscopy op Recommendation low fiber diet continue iv antibiotics possible dc in am if stable colonoscopy in 6-8 weeks once diverticulitis resolved It was a pleasure seeing Sweetie Woo Thank you for this consult. Entered by: Sonja Calvert MD Jul 23, 2016 16:38
[2016-07-23] MEDS: PANTOPRAZOLE SODIUM 40 MG VIAL IV PUSH SCH (18:32)
[2016-07-23] MEDS: ONDANSETRON HCL 4 MG/2 ML VIAL IVP PRN (18:32)
[2016-07-23] MEDS: SODIUM CHLOR 0.9% 1000 ML INJ 1,000 ML IV SCH (22:48)
[2016-07-24] VITALS: BP 101/71; PULSE 73; RESP 18; TEMP 97.9; O2SAT 99
[2016-07-24] MEDS: PIPERACIL-TAZO 4.5 GM PREMIX 100 ML IV SCH ×2 (01:00→06:14)
[2016-07-24] MEDS: SODIUM CHLOR 0.9% 1000 ML INJ 1,000 ML IV SCH (03:44)
[2016-07-24 04:00] VITALS: BP 91/64; PULSE 91; RESP 17; TEMP 97; O2SAT 97
[2016-07-24 08:00] VITALS: BP 93/65; PULSE 78; RESP 20; TEMP 98.5; O2SAT 98
[2016-07-24] MEDS: SODIUM CHLORIDE 0.9% FLUSH 5 ML FLUSH FLUSH SCH (08:33)
[2016-07-24] MEDS: ESOMEPRAZOLE 40 MG PO SCH (08:34)
[2016-07-24] MEDS: LACTOBACILLUS ACIDOPHILUS 1 GM PACKET PO SCH ×2 (08:34→12:47)
[2016-07-24] MEDS ORDERED: OXYC-392 PO (09:39)
[2016-07-24] MEDS ORDERED: METR-1 PO (09:39)
[2016-07-24] MEDS ORDERED: LACTG PO (09:39)
[2016-07-24] MEDS ORDERED: CIPR-9 PO (09:39)
--- NOTE | 2016-07-24 09:40 | HHI.DS ---
Discharge Summary Admission Date Jul 20, 2016 at 19:47 Discharge Date: Jul 24, 2016 Admitting Diagnosis Diverticulitis (1) Diverticulitis ICD Code: K57.92 Diagnosis: Principal (2) Failure of outpatient treatment ICD Code: Z78.9 Diagnosis: Principal (3) Dehydration ICD Code: E86.0 Diagnosis: Principal Procedures none Brief History - From Admission This is a 51-year-old female with no significant PMH who presented to the ER with complaints of abdominal pain x1 wk. Denies nausea, vomiting or diarrhea. Seen in ER on 07/09/16 for similar complaints, U/a w/ UTI, CT Abd/Pelvis w/ mild uncomplicated diverticulitis, d/c'd from ER w/ Cipro/Flagyl PO x10 days, completed antibiotics as directed. On arrival, BP 130/70, HR 98, O2 sat 98% on RA, Afebrile. WBC normal. Chemistry unremarkable except for GFR 71. Lactic Acid normal at 1.2. UA negative. CT Abd/Pelvis w/ increase in inflammatory changes since 07/09/16 surrounding left sigmoid colon. S/p Unasyn IV in ER. CBC/BMP: 07/23/16 0915 07/23/16 0915 Significant Findings Laboratory Tests Test 07/22/16 07/23/16 11:38 09:15 Blood Urea Nitrogen 5 MG/DL (7-18) 5 MG/DL (7-18) Estimat Glomerular Filtration 65 ML/MIN (>89) 65 ML/MIN (>89) Rate Potassium Level 3.4 MEQ/L (3.5-5.1) Imaging Last Impressions Abdomen/Pelvis CT 07/20/16 1439 Signed Impressions: Service Date/Time: Wednesday, July 20, 2016 16:11 - CONCLUSION: Mild interval increase in inflammatory changes since the 07/09/2016 exam surrounding the left side of sigmoid colon. This remains characteristic of acute diverticulitis. Lionel Chahal MD PE at Discharge GENERAL: in NAD sitting up comfortably in bed. When patient was moving from a sitting to a laying down position she was in no pain. CARDIOVASCULAR: Regular rate and rhythm without murmurs, gallops, or rubs. RESPIRATORY: Breath sounds equal bilaterally. No accessory muscle use. GASTROINTESTINAL: Abdomen soft. mild TTP in left lower quadrant that has improved.. Negative for any peritoneal signs. no distention. MUSCULOSKELETAL: No cyanosis, or edema. BACK: Nontender without obvious deformity. No CVA tenderness. Pt update on day of discharge f/u for abdominal pain. patient stated abdominal pain has improved a lot and wants to go home. denied any N/V. remains afebrile. Hospital Course Diverticulitis -Failed outpatient treatment with Cipro and Flagyl for 5 days. - CT Abd/Pelvis w/ mild interval increase in inflammatory changes since 07/09/16 surrounding left side of sigmoid colon, characteristic of acute diverticulitis. Analgesics/antiemetics as needed. -Patient never had elevated white count and remained afebrile. -she was put on zosyn and GI consulted. - improved with zosyn and was discharge on cipro and flagyl. per GI told okay with d/c with cipro and flagyl. -fu with GI and need coloscopy in 6-8 weeks. Dehydration -Due to decreased by mouth intake. -RESOLVED with IVFs. GERD -on nexium per patient. she stated other PPIs does not work. Migraines. -do not have maxalt on formulary. given sumatriptan PRN. Pt Condition on Discharge: Stable Discharge Disposition: Discharge Home Discharge Time: <= 30 minutes Discharge Instructions DIET: Follow Instructions for: Diverticulitis Diet Activities you can perform: Regular-No Restrictions Follow up Referrals: Gastroenterology - 6 Weeks PCP Follow-up - 1 Week New Medications: Ciprofloxacin (Cipro) 500 Mg Tab 500 MG PO BID Infection #14 Ref 0 TAB Metronidazole (Flagyl) 500 Mg Tab 500 MG PO TID Infection #21 Ref 0 TAB Lactobacillus Acidophilus (Floranex) 1 Gm Pkt 1 GM PO TID on antibiotics prevention Days 14 Ref 0 PKT Oxycodone (Oxycodone) 5 Mg Tab 5 MG PO Q4H PRN pain 6-10 #10 Ref 0 TAB Continued Medications: Esomeprazole DR (Nexium) 40 Mg Capdr 40 MG PO DAILY Ref 0 CAP Ondansetron Odt (Zofran Odt) 4 Mg Tab 4 MG SL Q6HR PRN Nausea/Vomiting #30 Ref 0 TAB Discontinued Medications: Ciprofloxacin (Ciprofloxacin) 500 Mg Tab 500 MG PO BID Infection Days 10 Ref 0 TAB Fluconazole (Diflucan) 150 Mg Tab 150 MG PO ONCE Infection #1 Ref 0 TAB Metronidazole (Metronidazole) 500 Mg Tab 500 MG PO TID Infection Days 10 Ref 0 TAB Tramadol (Tramadol) 50 Mg Tab 50 MG PO Q6H PRN PAIN #10 Ref 0 TAB Concepcion Monk MD Jul 24, 2016 09:40
--- NOTE | 2016-07-24 09:40 | HHI.DCPOC ---
Discharge Care Plan Diagnosis: (1) Diverticulitis (2) Dehydration Goals to Promote Your Health * To prevent worsening of your condition and complications * To maintain your health at the optimal level Directions to Meet Your Goals Take your medications as prescribed Follow your dietary instruction Follow activity as directed Keep your appointments as scheduled Take your immunizations and boosters as scheduled If your symptoms worsen call your PCP, if no PCP go to Urgent Care Center or Emergency Room Smoking is Dangerous to Your Health. Avoid second hand smoke Call the 24-hour hour crisis hotline for domestic abuse at Concepcion Monk MD Jul 24, 2016 09:40
[2016-07-24] MEDS ORDERED: POTASSIUM CHLORIDE 20 MEQ CONTROLLED RELEASE TAB PO ONE (10:00)
[2016-07-24 12:00] VITALS: BP 100/73; PULSE 70; RESP 18; TEMP 97.5; O2SAT 100
== END 2016-07-24 15:22 | disposition home or self-care (01) | DRG 392 ==
LOC: NEPC 13:44 → NEDA 18:15 → OBSVTOIN 19:47 → HOCB 21:36
PROVIDERS: ADMIT Family Medicine; ATTEND Family Medicine
DX: K57.32 Diverticulitis of large intestine without perforation or abscess without bleeding (principal); K22.70 Barrett's esophagus without dysplasia; G43.909 Migraine, unspecified, not intractable, without status migrainosus; E86.0 Dehydration; K21.9 Gastro-esophageal reflux disease without esophagitis
CPT/HCPCS: 74176; 80048; 80053; 81001; 83605; 83690; 84703; 85025; 85027; 85610; 85730; 96361; 96365; 96375; C9113; J0295; J0780; J1170; J1885; J2405; J2543; J7030; Q9963

== ENCOUNTER 2016-10-04 10:34 | Emergency (ER) | payer OTHER ==
[~2016-10-04] VITALS: Ht 165.1 cm; Wt 73.0 kg
[~2016-10-04 10:34] MED LIST changes: +CIPR-9 PO; -CIPR500T2 PO; -DIFL150T PO; +LACTG PO; +METR-1 PO; -METR500T10 PO; +OXYC-392 PO; -TRAM50TA PO
[2016-10-04 10:35] VITALS: BP 122/56; PULSE 94; RESP 16; TEMP 98.4; O2SAT 98
--- NOTE | 2016-10-04 11:17 | PD ---
HPI Chief Complaint: Injury Time Seen by Provider: 11:14 Travel History International Travel<30 days: No Contact w/Intl Traveler<30days: No Traveled to known affect area: No History of Present Illness HPI 51-year-old female presents the emergency department with right hand and wrist pain status post fall on outstretched hand injury last night. Patient has increased pain and swelling as well as decreased motion secondary to pain. Patient denies numbness, tingling, but has decreased ability to make a fist secondary to pain. Patient states pain is localized to the right dorsal lateral wrist and lateral hand. Patient has no pain to the elbow or shoulder on the right side. She denies any other injury. Patient has multiple allergies please see her list. PFSH Past Medical History Hx Anticoagulant Therapy: No Arthritis: Yes Asthma: No Autoimmune Disease: No Heart Rhythm Problems: No Cancer: No Cardiac Catheterization: No Cardiovascular Problems: Yes High Cholesterol: No Chemotherapy: No Chest Pain: Yes Congestive Heart Failure: No COPD: No Cerebrovascular Accident: No Diabetes: No Diminished Hearing: No Endocrine: No Genitourinary: No Headaches: Yes Hypertension: No Immune Disorder: No Kidney Stones: No Musculoskeletal: No Neurologic: No Psychiatric: No Reproductive: No Respiratory: Yes (PLEURISY) Immunizations Current: Yes Migraines: Yes Renal Failure: No Seizures: No Sleep Apnea: Yes ?: Not Menopausal: Yes : 10 Para: 4 Miscarriage: 6 Dilation and Curettage (D&C): Yes (Multiple) Past Surgical History Abdominal Surgery: No Body Medical Devices: titaimum screws in adalberto feet Cardiac Surgery: No Section: Yes Coronary Artery Bypass Graft: No Ear Surgery: Yes Endocrine Surgery: No Eye Surgery: Yes Genitourinary Surgery: No Gynecologic Surgery: Yes Hysterectomy: Yes Neurologic Surgery: No Oral Surgery: No Thoracic Surgery: No Tonsillectomy: Yes Other Surgery: Yes (bunions and hammer toe bilat feet, nose surgery, four fatty tumors removed) Social History Alcohol Use: Yes (RARE) Tobacco Use: No Substance Use: No Allergies-Medications (Allergen,Severity, Reaction): Coded Allergies: Erythromycin (Verified Allergy, Severe, Anaphylaxis, 07/20/16) Acetaminophen (Verified Allergy, Intermediate, Nausea/Vomiting, 07/20/16) Iodine (Verified Allergy, Intermediate, Hives, 07/20/16) Morphine (Verified Allergy, Intermediate, Hives, 07/20/16) Contrast Media (Verified Allergy, Mild, Hives, 07/20/16) Nonsteroidal Anti-Inflammatory Agts (Verified Allergy, Mild, Nausea/ Vomiting, 07/20/16) Reglan (Verified Allergy, Mild, Rash, 07/20/16) Reported Meds & Prescriptions Reported Meds & Active Scripts Active Oxycodone (Oxycodone HCl) 5 Mg Tab 5 Mg PO Q4H PRN Floranex (Lactobacillus Acidophilus) 1 Gm Pkt 1 Gm PO TID 14 Days Flagyl (Metronidazole) 500 Mg Tab 500 Mg PO TID Cipro (Ciprofloxacin HCl) 500 Mg Tab 500 Mg PO BID Zofran Odt (Ondansetron Odt) 4 Mg Tab 4 Mg SL Q6HR PRN Reported Nexium (Esomeprazole DR) 40 Mg Capdr 40 Mg PO DAILY Review of Systems Except as stated in HPI: all other systems reviewed are Neg General / Constitutional: No: Fever Eyes: No: Visual changes HENT: No: Headaches Cardiovascular: No: Chest Pain or Discomfort Respiratory: No: Shortness of Breath Gastrointestinal: No: Abdominal Pain Genitourinary: No: Dysuria Musculoskeletal: Positive: Arthralgias, Limited ROM, Pain Skin: No Rash Neurologic: No: Weakness Psychiatric: No: Depression Endocrine: No: Polydipsia Hematologic/Lymphatic: No: Easy Bruising Physical Exam Narrative GENERAL: Patient appears in mild distress. SKIN: Warm and dry. Normal color. Normal turgor. No abrasions or lacerations noted. No significant ecchymosis. HEAD: Atraumatic. Normocephalic. EYES: Pupils equal and round. No scleral icterus. No injection or drainage. ENT: No nasal bleeding or discharge. Mucous membranes pink and moist. Pharynx is clear. NECK: Trachea midline. Supple and nontender. CARDIOVASCULAR: Regular rate and rhythm. RESPIRATORY: No accessory muscle use. Clear to auscultation. Breath sounds equal bilaterally. MUSCULOSKELETAL: Extremities without clubbing, cyanosis, or edema. No obvious deformities. Patient is swelling and tenderness along the right dorsal lateral wrist and proximal lateral hand. Patient has decreased supination and pronation secondary to pain. 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 There is no pain in the proximal right forearm, right elbow, or right arm or shoulder. Patient has no other significant findings. NEUROLOGICAL: Awake and alert. No obvious cranial nerve deficits. Motor grossly within normal limits. Five out of 5 muscle strength in the arms and legs. Normal speech. PSYCHIATRIC: Appropriate mood and affect; insight and judgment normal. Data Data Last Documented VS Vital Signs Date Time Temp Pulse Resp B/P Pulse Ox O2 Delivery O2 Flow Rate FiO2 10/04/16 11:33 18 10/04/16 10:35 98.4 94 122/56 98 Orders Wrist, Complete ([id number]) (10/04/16 10:59) Ice/Cold Pack (10/04/16 10:59) Ibuprofen (Motrin) (10/04/16 12:15) Ondansetron Odt (Zofran Odt) (10/04/16 12:30) [facility] Medical Decision Making Medical Screen Exam Complete: Yes Emergency Medical Condition: Yes Differential Diagnosis Fall. Right wrist sprain. Right wrist fracture. Right hand sprain. Right hand fracture. Narrative Course Patient is medically stable at time of exam. Ice pack is applied to the injured area. X-ray of the right wrist is obtained. X-rays of the wrist show no acute fracture or dislocation. There are no obvious fractures of the hand as well. Per radiologist. Patient is given 800 mg ibuprofen by mouth now. Patient is also given 4 mg Zofran as she gets upset stomach with ibuprofen. Patient is placed in a Velcro wrist splint to the right arm for comfort. Patient should ice the area frequently. Patient is given prednisone 20 mg twice a day 5 days. Patient also given tramadol 50 mg one every 6 hours when necessary #20. Patient to follow up with primary care physician as needed, or return to ED as needed. Diagnosis Primary Impression: Unspecified sprain of right wrist, initial encounter Referrals: Primary Care Physician Patient Instructions: General Instructions, Wrist Sprain (ED) Additional Instructions: X-rays of the wrist show no acute fracture or dislocation. There are no obvious fractures of the hand as well. Per radiologist. Patient is given 800 mg ibuprofen by mouth now. Patient is also given 4 mg Zofran as she gets upset stomach with ibuprofen. Patient is placed in a Velcro wrist splint to the right arm for comfort. Patient should ice the area frequently. Patient is given prednisone 20 mg twice a day 5 days. Patient also given tramadol 50 mg one every 6 hours when necessary #20. Patient to follow up with primary care physician as needed, or return to ED as needed. Med/Other Pt SpecificInfo: Prescription(s) given Disposition: 01 DISCHARGE HOME Condition: Stable Min Gordon Oct 04, 2016 11:17
[2016-10-04] MEDS ORDERED: IBUPROFEN 800 MG TAB PO ONE (12:15)
--- NOTE | 2016-10-04 12:27 | RADRPT ---
EXAM DATE/TIME: 10/04/2016 11:19 [facility] COMPARISON: No previous studies available for comparison. INDICATIONS : Fell 2 days ago, pain on the medial side of the right wrist MEDICAL HISTORY : None. SURGICAL HISTORY : None. ENCOUNTER: Initial ACUITY: 2 days PAIN SCORE: 9/10 LOCATION: Right wrist FINDINGS: 3 views right wrist. Small osteophytes at the thumb carpometacarpal joint. Bone alignment within norm al limits. No evidence of fracture. CONCLUSION: No evidence of fracture. Jake Flores MD on October 04, 2016 at 12:23 Board Certified Radiologist. This report was verified electronically.
[2016-10-04] MEDS ORDERED: ONDANSETRON ODT 4 MG TAB PO ONE (12:30)
[2016-10-04] MEDS ORDERED: PRED20 PO (12:39)
[2016-10-04] MEDS ORDERED: TRAM50TA PO (12:39)
== END 2016-10-04 13:05 | disposition home or self-care (01) ==
LOC: NEPK 10:34
DX: S63.501A Unspecified sprain of right wrist, initial encounter (principal); W18.30XA Fall on same level, unspecified, initial encounter
CPT/HCPCS: 73110; 99284; L3908

== ENCOUNTER 2017-06-29 12:05 | Emergency (ER) | payer OTHER ==
[~2017-06-29] VITALS: Ht 165.1 cm; Wt 76.1 kg
[~2017-06-29 12:05] MED LIST changes: +PRED20 PO; +TRAM50TA PO
[2017-06-29 12:13] VITALS: BP 130/60; PULSE 90; RESP 16; TEMP 98.4; O2SAT 99
[2017-06-29] MEDS ORDERED: NEXI40CA PO (12:30)
[2017-06-29] MEDS ORDERED: NO ITAB PO (12:30)
[2017-06-29] MEDS ORDERED: MEDR4PAK PO (12:30)
[2017-06-29] MEDS ORDERED: DOXY100C PO (13:12)
[2017-06-29] MEDS ORDERED: BACIOIN6 EACH EYE (13:12)
[2017-06-29] MEDS ORDERED: DIFL150T PO (13:13)
--- NOTE | 2017-06-29 13:13 | PD ---
HPI Chief Complaint: Eye Problems/Injury Time Seen by Provider: 12:57 Travel History International Travel<30 days: No Contact w/Intl Traveler<30days: No Traveled to known affect area: No History of Present Illness HPI 52-year-old female here with inflammation to bilateral upper eyelids ongoing for 1 month. No ocular involvement. She is currently on steroids for her neck with little improvement. She currently taking an nonsedating antihistamine without improvement. She reports redness, dry skin, itching and pain of the upper lids. Denies any recent change in makeup or facial products. No new medications. No change in soap icterus. Denies eye pain or visual changes. Reports occasional crusting at eyelashes. Symptom severity is mild to moderate. No aggravating or alleviating factors. PFSH Past Medical History Hx Anticoagulant Therapy: No Arthritis: Yes Asthma: No Autoimmune Disease: No Heart Rhythm Problems: No Cancer: No Cardiac Catheterization: No Cardiovascular Problems: Yes High Cholesterol: No Chemotherapy: No Chest Pain: Yes Congestive Heart Failure: No COPD: No Cerebrovascular Accident: No Diabetes: No Diminished Hearing: No Endocrine: No Genitourinary: No Headaches: Yes Hypertension: No Immune Disorder: No Kidney Stones: No Musculoskeletal: No Neurologic: No Psychiatric: No Reproductive: No Respiratory: Yes (PLEURISY) Immunizations Current: Yes Migraines: Yes Renal Failure: No Seizures: No Sleep Apnea: Yes ?: Not Menopausal: Yes : 10 Para: 4 Miscarriage: 6 Dilation and Curettage (D&C): Yes (Multiple) Past Surgical History Abdominal Surgery: No Appendectomy: Yes Body Medical Devices: titaimum screws in adalberto feet Cardiac Surgery: No Section: Yes Cholecystectomy: Yes Coronary Artery Bypass Graft: No Ear Surgery: Yes Endocrine Surgery: No Eye Surgery: Yes Genitourinary Surgery: No Gynecologic Surgery: Yes Hysterectomy: Yes Neurologic Surgery: No Oral Surgery: No Thoracic Surgery: No Tonsillectomy: Yes Other Surgery: Yes (bunions and hammer toe bilat feet, nose surgery, four fatty tumors removed) Family History Family Myocardial Infarction: Yes Social History Alcohol Use: Yes (RARE) Tobacco Use: No Substance Use: No Allergies-Medications (Allergen,Severity, Reaction): Coded Allergies: erythromycin base (Unverified Allergy, Severe, Anaphylaxis, 06/29/17) acetaminophen (Unverified Allergy, Intermediate, Nausea/Vomiting, 06/29/17) iodine (Unverified Allergy, Intermediate, Hives, 06/29/17) morphine (Unverified Allergy, Intermediate, Hives, 06/29/17) potassium iodide (Unverified Allergy, Intermediate, Hives, 06/29/17) povidone-iodine (Unverified Allergy, Intermediate, Hives, 06/29/17) sodium iodide (Unverified Allergy, Intermediate, Hives, 06/29/17) sodium iodide (Unverified Allergy, Intermediate, Hives, 06/29/17) diatrizoate meglumine (Unverified Allergy, Mild, Hives, 06/29/17) diclofenac (Unverified Allergy, Mild, Nausea/Vomiting, 06/29/17) etodolac (Unverified Allergy, Mild, Nausea/Vomiting, 06/29/17) flurbiprofen (Unverified Allergy, Mild, Nausea/Vomiting, 06/29/17) gadobenic acid (Unverified Allergy, Mild, Hives, 06/29/17) gadodiamide (Unverified Allergy, Mild, Hives, 06/29/17) gadoteridol (Unverified Allergy, Mild, Hives, 06/29/17) ibuprofen (Unverified Allergy, Mild, Nausea/Vomiting, 06/29/17) indomethacin (Unverified Allergy, Mild, Nausea/Vomiting, 06/29/17) iodixanol (Unverified Allergy, Mild, Hives, 06/29/17) iohexol (Unverified Allergy, Mild, Hives, 06/29/17) ketoprofen (Unverified Allergy, Mild, Nausea/Vomiting, 06/29/17) ketorolac (Unverified Allergy, Mild, Nausea/Vomiting, 06/29/17) metoclopramide (Unverified Allergy, Mild, Rash, 06/29/17) naproxen (Unverified Allergy, Mild, Nausea/Vomiting, 06/29/17) oxaprozin (Unverified Allergy, Mild, Nausea/Vomiting, 06/29/17) Reported Meds & Prescriptions Reported Meds & Active Scripts Active Diflucan (Fluconazole) 150 Mg Tab 150 Mg PO ONCE Doxycycline Hyclate 100 Mg Cap 100 Mg PO BID 7 Days Bacitracin Opth Oint 500 Unit/Gm Oint 1 Applic EACH EYE BID Reported Multiple Vitamin (Multivitamin with Minerals) 1 Each Tablet 1 Tab PO DAILY Nexium (Esomeprazole DR) 40 Mg Capdr 40 Mg PO DAILY Medrol Dosepak (Methylprednisolone) 4 Mg Dspk 4 Mg PO DIRECTED Per Pharmacist direction Review of Systems Except as stated in HPI: all other systems reviewed are Neg Eyes: Positive: Other (redness, swelling, itching of the upper lids), No: Diploplia, Blurred Vision, Photophobia, Drainage, Redness, Foreign Body Sensation, Pain, Tearing, Blind Spots, Visual changes, Blindness HENT: No: Headaches Cardiovascular: No: Chest Pain or Discomfort Respiratory: No: Shortness of Breath Gastrointestinal: No: Abdominal Pain Genitourinary: No: Dysuria Physical Exam Narrative GENERAL: Alert and well-appearing 52-year-old female SKIN: Warm and dry. HEAD: Normocephalic. EYES: No injection or drainage. Bilateral upper lids mildly erythematous with dry flaking skin and mild swelling. Pupils equal, round, reactive to light. EOMs intact. Normal visual acuity. NECK: Supple Data Data Last Documented VS Vital Signs Date Time Temp Pulse Resp B/P (MAP) Pulse Ox O2 Delivery O2 Flow Rate FiO2 06/29/17 12:13 98.4 90 16 130/60 (83) 99 MDM Medical Decision Making Medical Screen Exam Complete: Yes Emergency Medical Condition: Yes Differential Diagnosis Blepharitis, dermatitis, periorbital cellulitis Narrative Course 52-year-old female here with inflammation to bilateral upper eyelids ongoing for 1 month. No ocular involvement. She is currently on steroids for her neck with little improvement. She currently taking an nonsedating antihistamine without improvement. This appears to be dermatitis versus blepharitis of the upper lids. She'll be treated with topical and oral antibiotics and instructed to continue steroids and add OTC Benadryl. Diagnosis Primary Impression: Blepharitis of both eyes Qualified Codes: H01.003 - Unspecified blepharitis right eye, unspecified eyelid; H01.006 - Unspecified blepharitis left eye, unspecified eyelid Referrals: Primary Care Physician Additional Instructions: Medications as directed. ADD [id number] Benadryl 25 mg as needed for itching. Follow-up with her doctor for recheck. Scripts Fluconazole (Diflucan) 150 Mg Tab 150 MG PO ONCE for Infection, #1 TAB 0 Refills Prov: Cuca Hernandez 06/29/17 Doxycycline Hyclate (Doxycycline Hyclate) 100 Mg Cap 100 MG PO BID for Infection for 7 Days, #14 CAP 0 Refills Prov: Cuca Hernandez 06/29/17 Bacitracin Opth Oint (Bacitracin Opth Oint) 500 Unit/Gm Oint 1 APPLIC EACH EYE BID for Infection, #1 TUBE 0 Refills Prov: Cuca Hernandez 06/29/17 Disposition: 01 DISCHARGE HOME Condition: Stable Cuca Hernandez Jun 29, 2017 13:13
== END 2017-06-29 13:26 | disposition home or self-care (01) ==
LOC: PHEFT 12:05
DX: H01.004 Unspecified blepharitis left upper eyelid (principal); H01.001 Unspecified blepharitis right upper eyelid; M19.90 Unspecified osteoarthritis, unspecified site; Z79.899 Other long term (current) drug therapy; Z88.6 Allergy status to analgesic agent; Z88.5 Allergy status to narcotic agent; Z88.8 Allergy status to other drugs, medicaments and biological substances
CPT/HCPCS: 99283

== ENCOUNTER 2017-07-13 09:17 | Emergency (ER) | payer OTHER ==
[~2017-07-13] VITALS: Ht 165.1 cm; Wt 77.0 kg
[~2017-07-13 09:17] MED LIST changes: +BACIOIN6 EACH EYE; -CIPR-9 PO; +DIFL150T PO; +DOXY100C PO; -LACTG PO; +MEDR4PAK PO; -METR-1 PO; +NO ITAB PO; -OXYC-392 PO; -PRED20 PO; -TRAM50TA PO; -ZOFR4TAB3 SL
[2017-07-13 09:19] VITALS: BP 120/84; PULSE 89; RESP 18; TEMP 98.3; O2SAT 98
--- NOTE | 2017-07-13 09:31 | PD ---
HPI Chief Complaint: Fall Time Seen by Provider: 09:22 Travel History International Travel<30 days: No Contact w/Intl Traveler<30days: No Traveled to known affect area: No History of Present Illness HPI 52-year-old female that presents to the ED for evaluation of fall. Patient had a mechanical fall yesterday. She tripped the parking lot. She had in her right knee, chin, left arm. Patient states that she's had fractures of the left wrist as well as surgeries to the right knee. Able to ambulate but with some discomfort. Per patient the pain is 8 out of 10. She denies losing consciousness. No other medical issues. She does have an abrasion to her right knee. No neck pain or back pain. No abdominal pain or chest pain. Multiple allergies to different medications. Per patient the pain is not better which prompted evaluation. Pain is worse on the wrist. PFSH Past Medical History Hx Anticoagulant Therapy: No Arthritis: Yes Asthma: No Autoimmune Disease: No Heart Rhythm Problems: No Cancer: No Cardiac Catheterization: No Cardiovascular Problems: Yes High Cholesterol: No Chemotherapy: No Chest Pain: Yes Congestive Heart Failure: No COPD: No Cerebrovascular Accident: No Diabetes: No Diminished Hearing: No Endocrine: No Genitourinary: No Headaches: Yes Hypertension: No Immune Disorder: No Implanted Vascular Access Dvce: Yes Kidney Stones: No Musculoskeletal: No Neurologic: No Psychiatric: No Reproductive: No Respiratory: Yes (PLEURISY) Immunizations Current: Yes Migraines: Yes Renal Failure: No Seizures: No Sleep Apnea: Yes Influenza Vaccination: No ?: Not Menopausal: Yes : 10 Para: 4 Miscarriage: 6 Dilation and Curettage (D&C): Yes (Multiple) Past Surgical History Abdominal Surgery: No Appendectomy: Yes Body Medical Devices: titaimum screws in adalberto feet Cardiac Surgery: No Section: Yes Cholecystectomy: Yes Coronary Artery Bypass Graft: No Ear Surgery: Yes Endocrine Surgery: No Eye Surgery: Yes Genitourinary Surgery: No Gynecologic Surgery: Yes Hysterectomy: Yes Neurologic Surgery: No Oral Surgery: No Thoracic Surgery: No Tonsillectomy: Yes Other Surgery: Yes (bunions and hammer toe bilat feet, nose surgery, four fatty tumors removed) Family History Family Myocardial Infarction: Yes Social History Alcohol Use: Yes (RARE) Tobacco Use: No Substance Use: No Allergies-Medications (Allergen,Severity, Reaction): Coded Allergies: erythromycin base (Unverified Allergy, Severe, Anaphylaxis, 07/13/17) acetaminophen (Unverified Allergy, Intermediate, Nausea/Vomiting, 07/13/17) iodine (Unverified Allergy, Intermediate, Hives, 07/13/17) morphine (Unverified Allergy, Intermediate, Hives, 07/13/17) potassium iodide (Unverified Allergy, Intermediate, Hives, 07/13/17) povidone-iodine (Unverified Allergy, Intermediate, Hives, 07/13/17) sodium iodide (Unverified Allergy, Intermediate, Hives, 07/13/17) sodium iodide (Unverified Allergy, Intermediate, Hives, 07/13/17) diatrizoate meglumine (Unverified Allergy, Mild, Hives, 07/13/17) diclofenac (Unverified Allergy, Mild, Nausea/Vomiting, 07/13/17) etodolac (Unverified Allergy, Mild, Nausea/Vomiting, 07/13/17) flurbiprofen (Unverified Allergy, Mild, Nausea/Vomiting, 07/13/17) gadobenic acid (Unverified Allergy, Mild, Hives, 07/13/17) gadodiamide (Unverified Allergy, Mild, Hives, 07/13/17) gadoteridol (Unverified Allergy, Mild, Hives, 07/13/17) ibuprofen (Unverified Allergy, Mild, Nausea/Vomiting, 07/13/17) indomethacin (Unverified Allergy, Mild, Nausea/Vomiting, 07/13/17) iodixanol (Unverified Allergy, Mild, Hives, 07/13/17) iohexol (Unverified Allergy, Mild, Hives, 07/13/17) ketoprofen (Unverified Allergy, Mild, Nausea/Vomiting, 07/13/17) ketorolac (Unverified Allergy, Mild, Nausea/Vomiting, 07/13/17) metoclopramide (Unverified Allergy, Mild, Rash, 07/13/17) naproxen (Unverified Allergy, Mild, Nausea/Vomiting, 07/13/17) oxaprozin (Unverified Allergy, Mild, Nausea/Vomiting, 07/13/17) Reported Meds & Prescriptions Reported Meds & Active Scripts Active Tramadol (Tramadol HCl) 50 Mg Tab 50 Mg PO Q6H PRN Reported Nexium (Esomeprazole DR) 40 Mg Capdr 40 Mg PO DAILY Review of Systems Except as stated in HPI: all other systems reviewed are Neg Physical Exam Narrative GENERAL: SKIN: Warm and dry. Patient has a bruise to the chin but able to move the mouth fully. No obvious bony deformity noted. HEAD: Atraumatic. Normocephalic. EYES: Pupils equal and round. No scleral icterus. No injection or drainage. ENT: No nasal bleeding or discharge. Mucous membranes pink and moist. Tongue is midline. No uvula deviation. NECK: Trachea midline. No JVD. CARDIOVASCULAR: Regular rate and rhythm. RESPIRATORY: No accessory muscle use. Clear to auscultation. Breath sounds equal bilaterally. GASTROINTESTINAL: Abdomen soft, non-tender, nondistended. Hepatic and splenic margins not palpable. MUSCULOSKELETAL: Extremities without clubbing, cyanosis, or edema. No obvious deformities. Full range of motion of the upper and lower extremities bilaterally. Patient has pain with range of motion of the left wrist. Mainly around the ulnar aspect of the wrist. Pain reproducible with flexion and extension of the wrist. Full range of motion of the digits. Good capillary refill. Sensation intact bilaterally. No elbow, shoulder pain. No pain on the right arm. Patient has full range of motion of the knee but has obvious bruising and abrasion noted to the knee. More lateral than medial. Full range of motion of the knee with some limping with walking. No obvious deformity or injury noted on the left leg. No lumbar, thoracic, cervical spine tenderness to palpation. NEUROLOGICAL: Awake and alert. No obvious cranial nerve deficits. Motor grossly within normal limits. Five out of 5 muscle strength in the arms and legs. Normal speech. PSYCHIATRIC: Appropriate mood and affect; insight and judgment normal. Data Data Last Documented VS Vital Signs Date Time Temp Pulse Resp B/P (MAP) Pulse Ox O2 Delivery O2 Flow Rate FiO2 07/13/17 09:19 98.3 89 18 120/84 (96) 98 Orders Orders Knee, Complete (4vws) (07/13/17 09:22) Wrist, Complete ([id number]) (07/13/17 09:22) Ice/Cold Pack (07/13/17 09:22) Splint Or Brace Apply/Monitor (07/13/17 10:01) Ed Discharge Order (07/13/17 10:03) [facility] Medical Decision Making Medical Screen Exam Complete: Yes Emergency Medical Condition: Yes Medical Record Reviewed: Yes Interpretation(s) xray of wrist negative xray of knee negative for bony injuries Differential Diagnosis Fracture versus sprain versus strain versus bruise versus contusion Narrative Course 52-year-old female that presents to the ED for evaluation of fall. Patient was properly examined and was found to have signs and symptoms concerning for bony injuries. X-rays were done. X-rays were done and negative. Patient was reassured. At this time. Treatment tramadol for pain. Ice or warm compresses. Given Heath wrap as well as a wrist brace. Follow with PCP. See ED worsening symptoms. Diagnosis Primary Impression: Multiple contusions Patient Instructions: General Instructions Additional Instructions: Take medications as prescribed. Follow-up with PCP. See ED for any worsening symptoms. Do not drink or drive while taking pain medication. Apply ice or heat as needed for pain Med/Other Pt SpecificInfo: Prescription(s) given Scripts Tramadol (Tramadol) 50 Mg Tab 50 MG PO Q6H Y for PAIN, #14 TAB 0 Refills Prov: Jose Lee MD 07/13/17 Disposition: 01 DISCHARGE HOME Condition: Stable Wilfredo Knapp Jul 13, 2017 09:31
[2017-07-13] MEDS ORDERED: TRAM50TA PO (09:52)
--- NOTE | 2017-07-13 09:59 | RADRPT ---
EXAM DATE/TIME: 07/13/2017 09:36 [facility] COMPARISON: KNEE RIGHT COMPLETE ([id number]), December 21, 2015, 21:10. INDICATIONS : Fell, has right knee pain MEDICAL HISTORY : None. SURGICAL HISTORY : Right knee surgery ENCOUNTER: Initial ACUITY: 1 day PAIN SCORE: 8/10 LOCATION: Right knee FINDINGS: Four view examination of the right knee demonstrates no evidence of fracture or dislocation. Bony mi neralization is normal. The articular surfaces are intact. The suprapatellar soft tissues have a no rmal configuration. CONCLUSION: No acute disease. Yuan Perry MD on July 13, 2017 at 9:56 Board Certified Radiologist. This report was verified electronically.
--- NOTE | 2017-07-13 10:01 | RADRPT ---
EXAM DATE/TIME: 07/13/2017 09:41 [facility] COMPARISON: WRIST LEFT COMPLETE ([id number]), April 26, 2015, 21:36. INDICATIONS : Fell, left wrist pain MEDICAL HISTORY : None. SURGICAL HISTORY : Right knee surgery ENCOUNTER: Initial ACUITY: 1 day PAIN SCORE: 8/10 LOCATION: Left wrist FINDINGS: Three view examination of the left wrist demonstrates no dislocation, or fracture. Mild soft tissue swelling is noted. The carpal bones are in normal alignment. The joint spaces are maintained. Bony mineralization is normal. CONCLUSION: Mild soft tissue swelling without evidence of fracture or dislocation. Yuan Perry MD on July 13, 2017 at 9:57 Board Certified Radiologist. This report was verified electronically.
== END 2017-07-13 10:10 | disposition home or self-care (01) ==
LOC: PHEFT 09:17
DX: S00.83XA Contusion of other part of head, initial encounter (principal); S80.211A Abrasion, right knee, initial encounter; W01.0XXA Fall on same level from slipping, tripping and stumbling without subsequent striking against object, initial encounter; Y92.481 Parking lot as the place of occurrence of the external cause
CPT/HCPCS: 73110; 73564; 99284; L3908

== ENCOUNTER 2017-08-20 09:56 | Emergency (ER) | payer OTHER ==
[~2017-08-20] VITALS: Ht 165.1 cm; Wt 76.0 kg
[~2017-08-20 09:56] MED LIST changes: -BACIOIN6 EACH EYE; -DIFL150T PO; -DOXY100C PO; -MEDR4PAK PO; -NO ITAB PO; +TRAM50TA PO
[2017-08-20 09:58] VITALS: BP 116/53; PULSE 84; RESP 18; TEMP 99.2; O2SAT 99
[2017-08-20] MEDS ORDERED: SERO25TA PO (10:05)
[2017-08-20] MEDS ORDERED: MEDR4PAK PO (10:32)
[2017-08-20] MEDS ORDERED: AUGM875T3 PO (10:32)
[2017-08-20] MEDS ORDERED: VENTAER INH (10:32)
--- NOTE | 2017-08-20 10:36 | PD ---
HPI Chief Complaint: ENT Complaint Time Seen by Provider: 10:22 Travel History International Travel<30 days: No Contact w/Intl Traveler<30days: No Traveled to known affect area: No History of Present Illness HPI 52-year-old female presents emergency department complaining of cough, sore throat, and losing her voice that started Friday. Patient states that she went to a concert Friday night and believes that she had a sore throat because of the constant however, it has been persistent and she is having worsening sore throat. Says that she has had a cough with yellow sputum. In addition, says she is having little bit of chest discomfort associated with the cough. Patient states she does not smoke however, she is frequently exposed to tobacco smoke in her environment. No shortness of breath, no significant chest pain. Says she has had pneumonia and bronchitis and wants to avoid this complication. She has no other complaints today. She denies chronic medical issues medication use. Has not tried any [id number] medications. Denies fever or chills. PFSH Past Medical History Hx Anticoagulant Therapy: No Arthritis: Yes Asthma: No Autoimmune Disease: No Heart Rhythm Problems: No Cancer: No Cardiac Catheterization: No Cardiovascular Problems: Yes High Cholesterol: No Chemotherapy: No Chest Pain: Yes Congestive Heart Failure: No COPD: No Cerebrovascular Accident: No Diabetes: No Diminished Hearing: No Endocrine: No Genitourinary: No Headaches: Yes Hypertension: No Immune Disorder: No Implanted Vascular Access Dvce: Yes Kidney Stones: No Musculoskeletal: No Neurologic: No Psychiatric: No Reproductive: No Respiratory: Yes (PLEURISY) Immunizations Current: Yes Migraines: Yes Renal Failure: No Seizures: No Sleep Apnea: Yes ?: Not Menopausal: Yes : 10 Para: 4 Miscarriage: 6 Dilation and Curettage (D&C): Yes (Multiple) Past Surgical History Abdominal Surgery: No Appendectomy: Yes Body Medical Devices: titaimum screws in adalberto feet Cardiac Surgery: No Section: Yes Cholecystectomy: Yes Coronary Artery Bypass Graft: No Ear Surgery: Yes Endocrine Surgery: No Eye Surgery: Yes Genitourinary Surgery: No Gynecologic Surgery: Yes Hysterectomy: Yes Neurologic Surgery: No Oral Surgery: No Thoracic Surgery: No Tonsillectomy: Yes Other Surgery: Yes (bunions and hammer toe bilat feet, nose surgery, four fatty tumors removed) Family History Family Myocardial Infarction: Yes Social History Alcohol Use: Yes (RARE) Tobacco Use: No Substance Use: No Allergies-Medications (Allergen,Severity, Reaction): Coded Allergies: erythromycin base (Unverified Allergy, Severe, Anaphylaxis, 08/20/17) acetaminophen (Unverified Allergy, Intermediate, Nausea/Vomiting, 08/20/17) iodine (Unverified Allergy, Intermediate, Hives, 08/20/17) morphine (Unverified Allergy, Intermediate, Hives, 08/20/17) potassium iodide (Unverified Allergy, Intermediate, Hives, 08/20/17) povidone-iodine (Unverified Allergy, Intermediate, Hives, 08/20/17) sodium iodide (Unverified Allergy, Intermediate, Hives, 08/20/17) sodium iodide (Unverified Allergy, Intermediate, Hives, 08/20/17) diatrizoate meglumine (Unverified Allergy, Mild, Hives, 08/20/17) diclofenac (Unverified Allergy, Mild, Nausea/Vomiting, 08/20/17) etodolac (Unverified Allergy, Mild, Nausea/Vomiting, 08/20/17) flurbiprofen (Unverified Allergy, Mild, Nausea/Vomiting, 08/20/17) gadobenic acid (Unverified Allergy, Mild, Hives, 08/20/17) gadodiamide (Unverified Allergy, Mild, Hives, 08/20/17) gadoteridol (Unverified Allergy, Mild, Hives, 08/20/17) ibuprofen (Unverified Allergy, Mild, Nausea/Vomiting, 08/20/17) indomethacin (Unverified Allergy, Mild, Nausea/Vomiting, 08/20/17) iodixanol (Unverified Allergy, Mild, Hives, 08/20/17) iohexol (Unverified Allergy, Mild, Hives, 08/20/17) ketoprofen (Unverified Allergy, Mild, Nausea/Vomiting, 08/20/17) ketorolac (Unverified Allergy, Mild, Nausea/Vomiting, 08/20/17) metoclopramide (Unverified Allergy, Mild, Rash, 08/20/17) naproxen (Unverified Allergy, Mild, Nausea/Vomiting, 08/20/17) oxaprozin (Unverified Allergy, Mild, Nausea/Vomiting, 08/20/17) Reported Meds & Prescriptions Reported Meds & Active Scripts Active Diflucan (Fluconazole) 150 Mg Tab 150 Mg PO ONCE Ventolin Hfa 18 GM Inh (Albuterol Sulfate) 90 Mcg/Act Aer 2 Puff INH Q4-6H PRN Augmentin (Amoxicillin-Clavulanate) 875-125 Mg Tab 1 Tab PO BID 5 Days Medrol Dosepak (Methylprednisolone) 4 Mg Dspk 4 Mg PO DIRECTED Per Pharmacist direction Reported Seroquel (Quetiapine Fumarate) 25 Mg Tab Unknown Dose PO HS Nexium (Esomeprazole DR) 40 Mg Capdr 40 Mg PO DAILY Review of Systems Except as stated in HPI: all other systems reviewed are Neg Physical Exam Narrative GENERAL: Well-nourished, well-developed patient, hoarseness to her voice SKIN: Focused skin assessment warm/dry. HEAD: Normocephalic. EYES: No scleral icterus. No injection or drainage. NECK: Supple, trachea midline. No JVD or lymphadenopathy. No pharyngeal injection CARDIOVASCULAR: Regular rate and rhythm without murmurs, gallops, or rubs. RESPIRATORY: Breath sounds equal bilaterally. No accessory muscle use. Left upper lobe questionable rhonchi, cleared with coughing. Scant wheezing. GASTROINTESTINAL: Abdomen soft, non-tender, nondistended. MUSCULOSKELETAL: No cyanosis, or edema. BACK: Nontender without obvious deformity. No CVA tenderness. Data Data Last Documented VS Vital Signs Date Time Temp Pulse Resp B/P (MAP) Pulse Ox O2 Delivery O2 Flow Rate FiO2 08/20/17 09:58 99.2 84 18 116/53 (74) 99 Orders Orders Ed Discharge Order (08/20/17 10:36) [facility] Medical Decision Making Medical Screen Exam Complete: Yes Emergency Medical Condition: Yes Differential Diagnosis Laryngitis, pharyngitis, postnasal drip, bronchitis, pneumonia Narrative Course 52-year-old female presents emergency department for evaluation of a sore throat , cough started Friday. Vital signs are stable. Patient does not have a primary care physician. Because of her tobacco smoke exposure and cough with questionable wheezing, will prescribe a watch and wait antibiotic. Says that she will be able to see her primary care physician around September 02. I advised that she should not take the antibiotic if the other medications prescribed today (albuterol inhaler, prednisone) decrease her symptoms. She states understanding and will comply. At the end of the visit, patient states that if she had to take the antibiotic she may develop yeast infection. Prescribed Diflucan for after the antibiotic and possible development of vaginal candidiasis. Diagnosis Primary Impression: Acute bronchitis Qualified Codes: J20.9 - Acute bronchitis, unspecified Referrals: Primary Care Physician Additional Instructions: You may use a drop of honey and lemon in a cup of warm water to soothe your cough. (If greater than 1 year old) Ensure good hydration and a nutritious diet. Note that viral infections may last for several weeks. Follow up with your primary physician within 2-3 days. Return to the ED for worsening or persistent symptoms. As discussed, do not start the antibiotic unless your cough and breathing worsens, despite using the other medications. Follow-up with her primary care physician as discussed. Scripts Fluconazole (Diflucan) 150 Mg Tab 150 MG PO ONCE for Infection, #1 TAB 0 Refills Prov: Tanner Marvin MD 08/20/17 Albuterol 18 GM Inh (Ventolin Hfa 18 GM Inh) 90 Mcg/Act Aer 2 PUFF INH Q4-6H Y for SHORTNESS OF BREATH, #1 INHALER 0 Refills Prov: Tanner Marvin MD 08/20/17 Amoxicillin-Clavulanate (Augmentin) 875-125 Mg Tab 1 TAB PO BID for Infection for 5 Days, #10 TAB 0 Refills Prov: Tanner Marvin MD 08/20/17 Methylprednisolone Dosepak (Medrol Dosepak) 4 Mg Dspk 4 MG PO DIRECTED, #1 DSPK 0 Refills Per Pharmacist direction Prov: Tanner Marvin MD 08/20/17 Disposition: 01 DISCHARGE HOME Condition: Stable Doretha Robertson Aug 20, 2017 10:36
[2017-08-20] MEDS ORDERED: DIFL150T PO (10:41)
== END 2017-08-20 10:46 | disposition home or self-care (01) ==
LOC: PHEFT 09:56
DX: J20.9 Acute bronchitis, unspecified (principal); M19.90 Unspecified osteoarthritis, unspecified site; G47.30 Sleep apnea, unspecified; Z79.51 Long term (current) use of inhaled steroids; Z79.899 Other long term (current) drug therapy; Z88.6 Allergy status to analgesic agent; Z88.8 Allergy status to other drugs, medicaments and biological substances; Z88.5 Allergy status to narcotic agent
CPT/HCPCS: 99283

== ENCOUNTER 2017-08-25 12:35 | Emergency (ER) | payer OTHER ==
[~2017-08-25] VITALS: Ht 165.1 cm; Wt 75.0 kg
[~2017-08-25 12:35] MED LIST changes: +AUGM875T3 PO; +DIFL150T PO; +MEDR4PAK PO; +SERO25TA PO; -TRAM50TA PO; +VENTAER INH
[2017-08-25 12:47] VITALS: BP 116/70; PULSE 96; RESP 18; TEMP 98.6; O2SAT 98
--- NOTE | 2017-08-25 13:30 | RADRPT ---
EXAM DATE/TIME: 08/25/2017 13:13 [facility] COMPARISON: No previous studies available for comparison. INDICATIONS : Right hand, third digit pain. Injured while wrestling. MEDICAL HISTORY : None. SURGICAL HISTORY : None. ENCOUNTER: Initial ACUITY: 3 days PAIN SCORE: 5/10 LOCATION: Right hand, third digit. FINDINGS: AP, lateral and oblique views of the right third digit were obtained and demonstrate mild soft tissue swelling of the proximal digit with no acute fracture or malalignment. No radiopaque foreign bodies are identified. There is apparent mild osteopenia. CONCLUSION: Mild soft tissue swelling with no acute fracture or malalignment. Lionel Chahal MD on August 25, 2017 at 13:27 Board Certified Radiologist. This report was verified electronically.
[2017-08-25] MEDS ORDERED: ZOFR4TAB PO (14:52)
--- NOTE | 2017-08-25 14:57 | PD ---
HPI Chief Complaint: Injury Time Seen by Provider: 14:26 Travel History International Travel<30 days: No Contact w/Intl Traveler<30days: No Traveled to known affect area: No History of Present Illness HPI 52-year-old female presents to the emergency room for evaluation of right third finger pain and swelling that started yesterday. Patient states she was wrestling with her friends and may have injured it during that time. She had mild pain then and states she may have heard a pop. Upon waking this morning she noticed significant swelling. Pain is worsened with any flexion of the right third finger. No pain at rest. She has not needed to take anything for pain. Denies paresthesias. It radiates into her hand. She denies any open wounds or injecting anything to the area. PFSH Past Medical History Hx Anticoagulant Therapy: No Arthritis: Yes Asthma: No Autoimmune Disease: No Heart Rhythm Problems: No Cancer: No Cardiac Catheterization: No Cardiovascular Problems: Yes High Cholesterol: No Chemotherapy: No Chest Pain: Yes Congestive Heart Failure: No COPD: No Cerebrovascular Accident: No Diabetes: No Diminished Hearing: No Endocrine: No Genitourinary: No Headaches: Yes Hypertension: No Immune Disorder: No Implanted Vascular Access Dvce: Yes Kidney Stones: No Musculoskeletal: No Neurologic: No Psychiatric: No Reproductive: No Respiratory: Yes (PLEURISY) Immunizations Current: Yes Migraines: Yes Renal Failure: No Seizures: No Sleep Apnea: Yes Menopausal: Yes : 10 Para: 4 Miscarriage: 6 Dilation and Curettage (D&C): Yes (Multiple) Past Surgical History Abdominal Surgery: No Appendectomy: Yes Body Medical Devices: titaimum screws in adalberto feet Cardiac Surgery: No Section: Yes Cholecystectomy: Yes Coronary Artery Bypass Graft: No Ear Surgery: Yes Endocrine Surgery: No Eye Surgery: Yes Genitourinary Surgery: No Gynecologic Surgery: Yes Hysterectomy: Yes Neurologic Surgery: No Oral Surgery: No Thoracic Surgery: No Tonsillectomy: Yes Other Surgery: Yes (bunions and hammer toe bilat feet, nose surgery, four fatty tumors removed) Social History Alcohol Use: Yes (RARE) Tobacco Use: No Substance Use: No Allergies-Medications (Allergen,Severity, Reaction): Coded Allergies: erythromycin base (Unverified Allergy, Severe, Anaphylaxis, 08/20/17) acetaminophen (Unverified Allergy, Intermediate, Nausea/Vomiting, 08/25/17) iodine (Unverified Allergy, Intermediate, Hives, 08/25/17) morphine (Unverified Allergy, Intermediate, Hives, 08/25/17) potassium iodide (Unverified Allergy, Intermediate, Hives, 08/25/17) povidone-iodine (Unverified Allergy, Intermediate, Hives, 08/25/17) sodium iodide (Unverified Allergy, Intermediate, Hives, 08/25/17) sodium iodide (Unverified Allergy, Intermediate, Hives, 08/25/17) diatrizoate meglumine (Unverified Allergy, Mild, Hives, 08/25/17) diclofenac (Unverified Allergy, Mild, Nausea/Vomiting, 08/25/17) etodolac (Unverified Allergy, Mild, Nausea/Vomiting, 08/25/17) flurbiprofen (Unverified Allergy, Mild, Nausea/Vomiting, 08/25/17) gadobenic acid (Unverified Allergy, Mild, Hives, 08/25/17) gadodiamide (Unverified Allergy, Mild, Hives, 08/25/17) gadoteridol (Unverified Allergy, Mild, Hives, 08/25/17) ibuprofen (Unverified Allergy, Mild, Nausea/Vomiting, 08/25/17) indomethacin (Unverified Allergy, Mild, Nausea/Vomiting, 08/25/17) iodixanol (Unverified Allergy, Mild, Hives, 08/25/17) iohexol (Unverified Allergy, Mild, Hives, 08/25/17) ketoprofen (Unverified Allergy, Mild, Nausea/Vomiting, 08/25/17) ketorolac (Unverified Allergy, Mild, Nausea/Vomiting, 08/25/17) metoclopramide (Unverified Allergy, Mild, Rash, 08/25/17) naproxen (Unverified Allergy, Mild, Nausea/Vomiting, 08/25/17) oxaprozin (Unverified Allergy, Mild, Nausea/Vomiting, 08/25/17) Reported Meds & Prescriptions Reported Meds & Active Scripts Active Diflucan (Fluconazole) 150 Mg Tab 150 Mg PO ONCE Ventolin Hfa 18 GM Inh (Albuterol Sulfate) 90 Mcg/Act Aer 2 Puff INH Q4-6H PRN Augmentin (Amoxicillin-Clavulanate) 875-125 Mg Tab 1 Tab PO BID 5 Days Medrol Dosepak (Methylprednisolone) 4 Mg Dspk 4 Mg PO DIRECTED Per Pharmacist direction Reported Seroquel (Quetiapine Fumarate) 25 Mg Tab Unknown Dose PO HS Nexium (Esomeprazole DR) 40 Mg Capdr 40 Mg PO DAILY Review of Systems Except as stated in HPI: all other systems reviewed are Neg Physical Exam Narrative GENERAL: Well-nourished, well-developed female no acute distress. Afebrile. Ambulatory. SKIN: Focused skin assessment warm/dry. Moderate erythema and mild ecchymosis of the right third dorsal finger especially over the proximal phalanx. HEAD: Normocephalic. EYES: No scleral icterus. No injection or drainage. NECK: Supple, trachea midline. No JVD or lymphadenopathy. CARDIOVASCULAR: Regular rate and rhythm without murmurs, gallops, or rubs. RESPIRATORY: Breath sounds equal bilaterally. No accessory muscle use. MUSCULOSKELETAL: No cyanosis. Moderate edema of the right third proximal phalanx. Less than 2 second capillary refill distally. Strength is 5/5 with flexion and extension of the right third finger. Extreme tenderness to palpation especially over the proximal phalanx. Data Data Last Documented VS Vital Signs Date Time Temp Pulse Resp B/P (MAP) Pulse Ox O2 Delivery O2 Flow Rate FiO2 08/25/17 12:47 98.6 96 18 116/70 (85) 98 Orders Orders Finger ([id number]) (08/25/17 ) [facility] Medical Decision Making Medical Screen Exam Complete: Yes Emergency Medical Condition: Yes Medical Record Reviewed: Yes Differential Diagnosis Sprain, contusion, fracture, dislocation Narrative Course 52-year-old female presents to the emergency room for evaluation of right third finger pain and swelling for the past day. Patient injured herself while wrestling with friends. Physical exam reveals moderate edema, ecchymosis, and erythema of the right third finger especially the proximal phalanx. Strength with extension and flexion are intact. Less than 2 second capillary refill distally. X-ray is negative. Likely sprain. Patient placed in splint and told to follow-up with a primary care physician for outpatient referral to hand surgeon. She understands and agrees to plan. Diagnosis Primary Impression: Finger sprain Qualified Codes: S63.632A - Sprain of interphalangeal joint of right middle finger, initial encounter Referrals: Primary Care Physician Additional Instructions: Rest and drink plenty of fluids. Keep splint on for at least one week. Take ibuprofen with food as directed, as needed for pain. Apply ice to the affected area for 20 minutes at a time, as needed for pain and swelling. Follow-up with a primary care physician for outpatient referral to hand surgeon if symptoms persist. Return to the emergency room for worsening symptoms. Med/Other Pt SpecificInfo: Prescription(s) given Scripts Ondansetron (Zofran) 4 Mg Tab 4 MG PO Q8HR Y for NAUSEA OR VOMITING, #10 TAB 0 Refills Prov: Agustín Kapadia MD 08/25/17 Disposition: 01 DISCHARGE HOME Condition: Stable Sujata Tenorio Aug 25, 2017 14:57
== END 2017-08-25 15:10 | disposition home or self-care (01) ==
LOC: NEPK 12:35
DX: S63.632A Sprain of interphalangeal joint of right middle finger, initial encounter (principal); G47.30 Sleep apnea, unspecified; Z87.39 Personal history of other diseases of the musculoskeletal system and connective tissue; Z86.79 Personal history of other diseases of the circulatory system; Z86.69 Personal history of other diseases of the nervous system and sense organs; Y93.72 Activity, wrestling
CPT/HCPCS: 73140; 99283

== ENCOUNTER 2017-09-03 13:57 | Emergency (ER) | payer OTHER ==
[~2017-09-03] VITALS: Ht 165.1 cm; Wt 76.0 kg
[~2017-09-03 13:57] MED LIST changes: +ZOFR4TAB PO
[2017-09-03 14:00] VITALS: BP 110/65; PULSE 88; RESP 16; TEMP 98.2; O2SAT 100
--- NOTE | 2017-09-03 14:53 | RADRPT ---
EXAM DATE/TIME: 09/03/2017 14:27 [facility] COMPARISON: No previous studies available for comparison. INDICATIONS : Tripped and fell into a hole last night. Pain in 5th digit. MEDICAL HISTORY : Diverticulitis. SURGICAL HISTORY : Hysterectomy. Appendectomy. Cholecystectomy. Left foot ORIF, Left ankle ORIF ENCOUNTER: Initial ACUITY: 1 day PAIN SCORE: 10/10 LOCATION: Left Foot FINDINGS: Three view examination of the left foot demonstrates no soft tissue swelling, dislocation, or fractur e. There is evidence of previous internal fixation involving the fifth metatarsal. Mild degenerative changes involving the first metatarsal-phalangeal joint. The tarsal bones appear intact. The calcan eus is intact. Bony mineralization is normal. CONCLUSION: 1. No acute fracture or joint dislocation. 2. Mild degenerative changes at the first metatarsal-phalangeal joint. Jonh Amado MD on September 03, 2017 at 14:50 Board Certified Radiologist. This report was verified electronically.
--- NOTE | 2017-09-03 15:41 | PD ---
HPI Chief Complaint: Injury Time Seen by Provider: 14:06 Travel History International Travel<30 days: No Contact w/Intl Traveler<30days: No Traveled to known affect area: No History of Present Illness HPI 52-year-old female here with left foot pain twisting injury today. She denies paresthesia or altered sensation to the foot. She has pain with weightbearing. Pain is constant throbbing. Aggravated by weightbearing and alleviated with rest. Symptom severity is moderate. PFSH Past Medical History Hx Anticoagulant Therapy: No Arthritis: Yes Asthma: No Autoimmune Disease: No Heart Rhythm Problems: No Cancer: No Cardiac Catheterization: No Cardiovascular Problems: Yes High Cholesterol: No Chemotherapy: No Chest Pain: Yes Congestive Heart Failure: No COPD: No Cerebrovascular Accident: No Diabetes: No Diminished Hearing: No Endocrine: No Genitourinary: No Headaches: Yes Hypertension: No Immune Disorder: No Implanted Vascular Access Dvce: Yes Kidney Stones: No Musculoskeletal: No Neurologic: No Psychiatric: No Reproductive: No Respiratory: Yes (PLEURISY) Immunizations Current: Yes Migraines: Yes Renal Failure: No Seizures: No Sleep Apnea: Yes Influenza Vaccination: No ?: Not Menopausal: Yes : 10 Para: 4 Miscarriage: 6 Dilation and Curettage (D&C): Yes (Multiple) Past Surgical History Abdominal Surgery: No Appendectomy: Yes Body Medical Devices: titaimum screws in adalberto feet Cardiac Surgery: No Section: Yes Cholecystectomy: Yes Coronary Artery Bypass Graft: No Ear Surgery: Yes Endocrine Surgery: No Eye Surgery: Yes Genitourinary Surgery: No Gynecologic Surgery: Yes Hysterectomy: Yes Neurologic Surgery: No Oral Surgery: No Thoracic Surgery: No Tonsillectomy: Yes Other Surgery: Yes (bunions and hammer toe bilat feet, nose surgery, four fatty tumors removed) Family History Family Myocardial Infarction: Yes Social History Alcohol Use: Yes (RARE) Tobacco Use: No Substance Use: No Allergies-Medications (Allergen,Severity, Reaction): Coded Allergies: erythromycin base (Unverified Allergy, Severe, Anaphylaxis, 09/03/17) acetaminophen (Unverified Allergy, Intermediate, Nausea/Vomiting, 09/03/17) iodine (Unverified Allergy, Intermediate, Hives, 09/03/17) morphine (Unverified Allergy, Intermediate, Hives, 09/03/17) potassium iodide (Unverified Allergy, Intermediate, Hives, 09/03/17) povidone-iodine (Unverified Allergy, Intermediate, Hives, 09/03/17) sodium iodide (Unverified Allergy, Intermediate, Hives, 09/03/17) sodium iodide (Unverified Allergy, Intermediate, Hives, 09/03/17) diatrizoate meglumine (Unverified Allergy, Mild, Hives, 09/03/17) diclofenac (Unverified Allergy, Mild, Nausea/Vomiting, 09/03/17) etodolac (Unverified Allergy, Mild, Nausea/Vomiting, 09/03/17) flurbiprofen (Unverified Allergy, Mild, Nausea/Vomiting, 09/03/17) gadobenic acid (Unverified Allergy, Mild, Hives, 09/03/17) gadodiamide (Unverified Allergy, Mild, Hives, 09/03/17) gadoteridol (Unverified Allergy, Mild, Hives, 09/03/17) ibuprofen (Unverified Allergy, Mild, Nausea/Vomiting, 09/03/17) indomethacin (Unverified Allergy, Mild, Nausea/Vomiting, 09/03/17) iodixanol (Unverified Allergy, Mild, Hives, 09/03/17) iohexol (Unverified Allergy, Mild, Hives, 09/03/17) ketoprofen (Unverified Allergy, Mild, Nausea/Vomiting, 09/03/17) ketorolac (Unverified Allergy, Mild, Nausea/Vomiting, 09/03/17) metoclopramide (Unverified Allergy, Mild, Rash, 09/03/17) naproxen (Unverified Allergy, Mild, Nausea/Vomiting, 09/03/17) oxaprozin (Unverified Allergy, Mild, Nausea/Vomiting, 09/03/17) Reported Meds & Prescriptions Reported Meds & Active Scripts Active Reported Seroquel (Quetiapine Fumarate) 25 Mg Tab Unknown Dose PO HS Nexium (Esomeprazole DR) 40 Mg Capdr 40 Mg PO DAILY Review of Systems Except as stated in HPI: all other systems reviewed are Neg General / Constitutional: No: Fever Eyes: No: Visual changes HENT: No: Headaches Cardiovascular: No: Chest Pain or Discomfort Respiratory: No: Shortness of Breath Gastrointestinal: No: Abdominal Pain Genitourinary: No: Dysuria Physical Exam Narrative GENERAL: Alert and well-appearing 52-year-old female SKIN: Warm and dry. HEAD: Normocephalic. EYES: No scleral icterus. No injection or drainage. NECK: Supple, trachea midline. No JVD or lymphadenopathy. CARDIOVASCULAR: Regular rate and rhythm without murmurs, gallops, or rubs. RESPIRATORY: Breath sounds equal bilaterally. No accessory muscle use. GASTROINTESTINAL: Abdomen soft, non-tender, nondistended. MUSCULOSKELETAL: LLE: Tenderness over the fourth and fifth metatarsal. No obvious deformity. Patient can freely wiggle toes. Normal sensation. Brisk cap refill. Data Data Last Documented VS Vital Signs Date Time Temp Pulse Resp B/P (MAP) Pulse Ox O2 Delivery O2 Flow Rate FiO2 09/03/17 14:00 98.2 88 16 110/65 (80) 100 Orders Orders Foot, Complete ([id number]) (09/03/17 ) [facility] Medical Decision Making Medical Screen Exam Complete: Yes Emergency Medical Condition: Yes Differential Diagnosis Fracture, sprain, contusion Narrative Course 52-year-old female here with left foot pain twisting injury today. Extremities neurovascularly intact. X-rays negative for fracture. She will be free treated for foot sprain Diagnosis Primary Impression: Foot sprain Qualified Codes: S93.602A - Unspecified sprain of left foot, initial encounter Referrals: Primary Care Physician Additional Instructions: TYLENOL & IBUPROFEN FOR PAIN Disposition: 01 DISCHARGE HOME Condition: Stable Cuca Hernandez September 03, 2017 15:41
== END 2017-09-03 16:04 | disposition home or self-care (01) ==
LOC: PHEFT 13:57
DX: S93.602A Unspecified sprain of left foot, initial encounter (principal); X50.1XXA Overexertion from prolonged static or awkward postures, initial encounter
CPT/HCPCS: 73630; 99283